=== PATIENT | male | born 1965 | race Hispanic/Latino ===

== ENCOUNTER 2024-11-17 13:27 | Inpatient (IN) | payer OTHER ==
[2024-11-17] VITALS (24 sets, daily range): BP systolic 85–132; BP diastolic 40–80; PULSE 84–115; RESP 13–22; TEMP 98.4; O2SAT 99
[~2024-11-17] VITALS: Ht 177.8 cm; Wt 84.8 kg
--- NOTE | 2024-11-17 13:52 | NUR ---
PT WAS IN TRIAGE OFFICE AND REFUSED TO LEAVE THE TRIAGE OFFICE TO GO TO HIS ROOM. HELD ONTO THE DOOR HANDLE FOR 15 MINUTES AND PT STATED "I WANT YOU TO LEAVE ME ALONE." PT AND CAREGIVER AT BEDSIDE. PLACED IN ROOM BY YEIMI RN, CAREGIVER, , MYSELF, AND ELOINA RN. WHEN PT PLACED INTO THE ROOM, PT STATED "WHAT ARE YOU DOING TO ME. I DID NOT HURT THE LITTLE GIRL." WHEN REORIENTED, PT REFUSED TO TAKE BLOOD PRESSURE. WHEN APPROACHED TO PLACE BP CUFF ON LEFT ARM, THE PATIENT LIFTED HIS ARM AND STATED "LEAVE ME ALONE OR I HIT YOU". REFUSING EKG, REFUSING BLOODWORK, AND REFUSING VITAL SIGNS AT THIS TIME.
--- NOTE | 2024-11-17 14:03 | EKG ---
[facility] Test Date: 2024-11-17 Test Time: 13:57:11 Pat Name: KATHIE OSPINA Department: ED Room: 215 Gender: M Addiction Treatment Counselor: [id number] : [id number] Requested By: MADI BOYD Order Number: [id number] Reading MD: Perry Gutierrez Measurements Intervals Moodus Rate: 121 P: 89 TX: 144 QRS: 11 QRSD: 105 T: 52 QT: 337 QTc: 479 Interpretive Statements Sinus tachycardia Nonspecific STT abnormality No previous ECG available for comparison Electronically Signed On 11-18-2024 21:50:11 CDT by Perry Gutierrez Please click the below link to view image of tracing.
[2024-11-17 14:33] LABS: IMMATURE GRANULOCYTE ABSOLUTE 0.02 K/uL (0-1); NUCLEATED RED BLOOD CELLS 0.0 % (0.0-0.19); PLATELET COUNT (AUTO) 90 K/uL (130-400); RED BLOOD CELL COUNT(AUTO) 2.80 MIL/uL (4.50-6.20); RED CELL DISTRIBUTION WIDTH 16.4 % (11.0-15.5); WHITE BLOOD COUNT (AUTO) 4.1 K/uL (4.8-10.8)
--- NOTE | 2024-11-17 14:58 | NUR ---
ENTERED THE ROOM TO ADMINISTER MEDICATION TO THE PT AND PT REFUSED TAKE MEDICATION. USED A 10 CC SYRINGE TO ADMINISTER LACTULOSE DIRECTLY INTO THE PTS MOUTH. PT BIT THE SYRINGE AND SPIT OUT THE MEDICATION.
[2024-11-17] MEDS: 0.9%NACL 1000ML 1,000 ML IV ONE (15:04)
[2024-11-17] MEDS: LACTULOSE 20 GM/30 ML UDCUP PO ONE (15:05)
--- NOTE | 2024-11-17 15:11 | HMCIMG ---
EXAM: CT Head Without IV contrast. CLINICAL HISTORY: AMS TECHNIQUE: Axial computed tomography images of the head/brain without intravenous contrast. COMPARISON: None provided. FINDINGS: BRAIN: No evidence of acute hemorrhage. No mass lesion. No CT evidence for acute territorial infarct. No midline shift or extra-axial collections. VENTRICLES: No hydrocephalus. ORBITS: The orbits are unremarkable. SINUSES AND MASTOIDS: The paranasal sinuses and mastoid air cells are clear. BONES: No fracture. SOFT TISSUES: Unremarkable. IMPRESSION: No acute intracranial abnormality. If clinical concern persist recommend MRI for further evaluation. /[place]
[2024-11-17 15:48] LABS: CREATININE 1.5 mg/dL (0.5-1.3); GLOMERULAR FILTR. RATE CALC 53 mL/min (>90); GLUCOSE,RANDOM 160 mg/dL (70-105); SODIUM SERUM 134 mmol/L (136-145); UREA NITROGEN, BLOOD 22 mg/dL (7-18)
[2024-11-17 15:52] LABS: ALCOHOL, BLOOD < 3 mg/dL (0-10); ASPARTATE AMINOTRANSFERASE 26 U/L (10-37); CREATINE KINASE, TOTAL 73 U/L (21-232); TOTAL PROTEIN, SERUM 6.1 g/dL (6.0-8.3)
--- NOTE | 2024-11-17 16:49 | ERN ---
ED Note History of Present Illness Stated Complaint: ALTERED MENTAL STATUS Chief Complaint: Altered Mental Status Time Seen by MD: 13:33 Dictation: 59-year-old male presenting to the emergency department with a his for altered mental status history of ETOH abuse and cirrhosis unsure if he has been taking his medications but has been acting more confused and uncooperative. Allergies: Coded Allergies: Penicillins (Unverified Allergy, Unknown, 11/17/24) Sulfa (Sulfonamide Antibiotics) (Unverified Allergy, Unknown, 11/17/24) Past Medical History Past Medical History: Other Additional Past Medical Hx: CIRRHOSIS OF THE LIVER, Surgical History: None Review of System Dictation Unable to obtain review of systems due to altered mental status Initial Vital Sign VS Vital Signs Date Time Temp Pulse Resp B/P (MAP) Pulse Ox O2 Delivery O2 Flow Rate FiO2 11/17/24 13:30 98.1 95 16 136/62 97 Room Air 11/17/24 14:21 0 21 Physical Exam Dictation General: awake, alert, appears tremulous and confused Head/Face: Normocephalic, atraumatic Eyes: PERRL, EOMI, vision at baseline ENT: oral cavity clear, TMs clear, no signs of infection Neck: Trachea midline, supple, no nuchal rigidity Cardiovascular: RRR, normal S1/S2, No MRGs, no JVD Respiratory: CTAB, no respiratory distress, No rales or wheezes Abdomen: Soft, non-tender, non-distended, normal bowel sounds, no guarding or rebound. Skin: Warm, dry, normal turgor, no rash MS/Extremity: Pulses equal, no cyanosis, neurovascular intact, FROM Neuro: Confused, strength 5/5, CN 2-12 intact, normal cerebellar exam, normal gait, Results (Laboratory/Radiology) Laboratory/Radiology Laboratory Tests Test 11/17/24 14:21 White Blood Count 4.1 K/uL (4.8-10.8) L Red Blood Count 2.80 MIL/uL (4.50-6.20) L Hemoglobin 7.7 g/dL (14.0-18.0) L Hematocrit 24.7 % (42-54) L Mean Corpuscular Volume 88.2 fL (79-99) Mean Corpuscular Hemoglobin 27.5 pg (27.0-33.0) Mean Corpuscular Hemoglobin Concent 31.2 g/dL (32.0-36.0) L Red Cell Distribution Width 16.4 % (11.0-15.5) H Platelet Count 90 K/uL (130-400) L Mean Platelet Volume 10.2 fL (7.5-10.5) Immature Granulocyte % (Auto) 0.5 % (0-1) Neutrophils (%) (Auto) 59.4 % (40.0-77.0) Lymphocytes (%) (Auto) 16.4 % (21.0-51.0) L Monocytes (%) (Auto) 17.9 % (3.0-13.0) H Eosinophils (%) (Auto) 5.3 % (0.0-8.0) Basophils (%) (Auto) 0.5 % (0.0-5.0) Neutrophils # (Auto) 2.5 K/uL (1.8-7.7) Lymphocytes # (Auto) 0.7 K/uL (1.0-4.8) L Monocytes # (Auto) 0.7 K/uL (0.1-1.0) Eosinophils # (Auto) 0.22 K/uL (0.00-0.70) Basophils # (Auto) 0.02 K/uL (0.00-0.20) Absolute Immature Granulocyte (auto 0.02 K/uL (0-1) Nucleated Red Blood Cells 0.0 % (0.0-0.19) White Cell Morphology Comment See comments Sodium Level 134 mmol/L (136-145) L Potassium Level 4.1 mmol/L (3.5-5.1) Chloride Level 100 mmol/L (101-111) L Carbon Dioxide Level 23 mmol/L (21-32) Blood Urea Nitrogen 22 mg/dL (7-18) H Creatinine 1.5 mg/dL (0.5-1.3) H Glomerular Filtration Rate Calc 53 mL/min (>90) Random Glucose 160 mg/dL (70-105) H Lactic Acid Level 3.6 mmol/L (0.8-2.5) H Total Calcium 9.2 mg/dL (8.5-10.1) Total Bilirubin 1.0 mg/dL (0.2-1.0) Direct Bilirubin 0.4 mg/dL (0.0-0.3) H Aspartate Amino Transf (AST/SGOT) 26 U/L (10-37) Alanine Aminotransferase (ALT/SGPT) 21 U/L (12-78) Alkaline Phosphatase 122 U/L (50-136) Ammonia 124 umol/L (11-32) *H Total Creatine Kinase 73 U/L (21-232) Troponin I High Sensitivity 5 ng/L (4-75) Total Protein 6.1 g/dL (6.0-8.3) Albumin 3.0 g/dL (3.5-5.0) L Serum Alcohol < 3 mg/dL (0-10) Labs Reviewed?: Yes EKG Comment: Heart rate 121, sinus tachycardia no STEMI ED Course ED Course Orders Procedure Category Date Status Time 12 Lead Ekg Tracing- EKG 11/17/24 Complete Technical 13:37 Ammonia LAB 11/17/24 Complete 13:37 Alcohol, Blood LAB 11/17/24 Complete 13:37 Basic Metabolic Panel LAB 11/17/24 Complete 13:37 Blood Cult MERCEDES 11/17/24 In Process 13:37 Cbc With Differential LAB 11/17/24 Complete 13:37 Hepatic Function Panel LAB 11/17/24 Complete 13:37 Creatine Kinase, Total LAB 11/17/24 Complete 13:37 Lactic Acid LAB 11/17/24 Complete 13:37 Troponin I High LAB 11/17/24 Complete Sensitivity 13:37 Urinalysis Profile LAB 11/17/24 Logged 13:37 Chest 1vw RAD 11/17/24 Logged 13:37 Ct Head/Brain W/O CT 11/17/24 Resulted Contrast 13:37 Ceftriaxone 2gm Vial PHA 11/17/24 Complete (Rocephin 2gm Inj) 14:30 Lactulose 20 Gm/30 Ml PHA 11/17/24 Complete Udcup (Constulose 14:30 Diazepam 5 Mg/Ml 2 Ml PHA 11/17/24 Complete Syg (Valium 5 Mg/M 14:30 0.9%Nacl 1000ml (Ns PHA 11/17/24 Complete 1000ml) 14:30 Current Medications Medications (Trade) Dose Ordered Sig/Yumiko Route PRN Reason Start Time Stop Time Status Last Admin Dose Admin Ceftriaxone Sodium (Rocephin 2gm Inj) 2 gm ONCE ONCE IVPB 11/17/24 14:30 11/17/24 14:36 DC 11/17/24 15:06 Diazepam (VALium 5 MG/ML 2 ML SYG) 10 mg ONCE ONCE IVP 11/17/24 14:30 11/17/24 14:33 DC 11/17/24 15:06 Lactulose (Constulose 20gm/ 30ml Udcup) 20 gm ONCE ONCE PO 11/17/24 14:30 11/17/24 14:33 DC Sodium Chloride 1,000 ml @ 0 mls/hr ONCE ONCE IV 11/17/24 14:30 11/17/24 14:33 DC 11/17/24 15:04 Vital Signs Date Time Temp Pulse Resp B/P (MAP) Pulse Ox O2 Delivery O2 Flow Rate FiO2 11/17/24 14:21 99.3 117 20 116/55 97 Room Air* 0 21 11/17/24 13:30 98.1 95 16 136/62 97 Room Air Medical Decision Making MDM MDM: Differential diagnosis: Rationale: Tests considered and ordered secondary to shared decision making include: labs, ECG and radiology Previous outside records reviewed: Old ER visits. Risk of complication and/or morbidity or mortality of patient management: None Medications-Per medication reconciliation Need for hospitalization: Patient does meet criteria for hospitalization. Need for emergency major/minor surgery: No There are no social concerns with this patient. Prescription drug management Prescriptions will include symptomatic care Patient's prior external medical records from other ER visits were reviewed by me as indicated. Prior testing and results from previous visits were reviewed. Prior tests were taken into account with medical decision making and resource utilization, independent historian/historians were used to obtain complete medical history. I independently interpreted the test that were performed, results were reviewed by me and considered findings on radiology if ordered. Medical management and examination interpretation discussions were had by me with other qualified healthcare professionals as indicated for the patient's care. 59-year-old male with altered mental status, hepatic encephalopathy admitting for further care and evaluation. Critical Care Note Comment(s) Total critical care time was 33 minutes. Excluding time for procedures. Management of critically ill patient with concern for acute decompensation. Management included interpretation of laboratory values and imaging, hemodynamics, time for consultation with consultants and admitting physician. DX & DISP Disposition: Inpatient Departure Impression: Primary Impression: Altered mental status Additional Impression: Hepatic encephalopathy Condition: Stable Referrals: ANIAY ANTONIO MD (PCP) MADI BOYD MD Nov 17, 2024 16:49
--- NOTE | 2024-11-17 17:12 | NUR ---
RESUSCITATIVE MEASURES SIGNED AT THIS TIME. SIGNED FOR PT HE IS CURRENTLY A&OX0. COMPRESSIONS ONLY- NO INTUBATION.
[2024-11-17] MEDS ORDERED: COMPOUND IV REFRIGERATED 1 EACH IVSOLN MISC PRN (17:30)
[2024-11-17] MEDS ORDERED: FOLic ACID 5 MG/ML VIAL 1 MG, THIAMINE HCL 100 MG in 0.9%NACL 1000ML 1,000 ML IV SCH (17:30)
[2024-11-17] MEDS ORDERED: PHARMACY COMMUNICATION MISC SCH (17:30)
[2024-11-17 17:40] LABS: ABG BASE EXCESS -0.2 mmol/L (-2.0-3.0); ABG HCO3 22.7 mmol/L (21.0-28.0); ABG OXYGEN SATURATION 43.9 % (94.0-98.0); ABG PCO2 30 mmHg (35-48); ABG PH 7.497 (7.350-7.450); CARBON MONOXIDE 0.5 % (0.5-1.5); DEVICE COMMENT RBMELANIE; PO2, ARTERIAL BG < 45.0 mmHg (83.0-108.0); TEMPERATURE, CELSIUS BG 37.0 CELSIUS (35.5-37.0); VENT MODE, BG RA (ROOM AIR)
[2024-11-17] MEDS: BUDESONIDE 0.5 MG/2 ML INH IH SCH (17:46)
[2024-11-17 17:50] LABS: INR 1.17 (0.85-1.15)
[2024-11-17] MEDS ORDERED: GLUCAGON 1MG KIT 1 MG ML IM PRN (18:00)
[2024-11-17] MEDS ORDERED: DEXTROSE 50%-WATER 50 ML DISP.SYRIN IV PRN (18:00)
[2024-11-17 18:05] LABS: APPEARANCE,URINE CLEAR (CLEAR); GLUCOSE, URINE (UA) NEGATIVE (NEGATIVE); LEUKOCYTE ESTERASE ,URINE NEGATIVE Leu/uL (NEGATIVE); NITRATE,URINE NEGATIVE (NEGATIVE); OCCULT BLOOD,URINE NEGATIVE (NEGATIVE)
[2024-11-17 18:06] LABS: ADD UA MICROSCOPIC NO
[2024-11-17 18:12] LABS: AMPHET/METH SCREEN,URINE NEGATIVE (NEGATIVE); BARBITURATE SCREEN, URINE NEGATIVE (NEGATIVE); CANNABINOID SCREEN,URINE NEGATIVE (NEGATIVE); COCAINE SCREEN,URINE NEGATIVE (NEGATIVE)
--- NOTE | 2024-11-17 18:14 | HP ---
[facility] HISTORY AND PHYSICAL Date of Service: Nov 17, 2024 Time of Service: 18:02 HISTORY OF PRESENT ILLNESS: Date of service: 11/17/2024, patient was seen in ER room 11 59-year-old male with underlying history of alcoholic liver cirrhosis, chronic kidney disease, long-term history of alcoholism who presented to the ER for further evaluation of one day history of confusion, agitation, combativeness. P joanne is unable to provide any reliable history and spouse was present at bedside who assisted with further HPI. Patient was recently hospitalized in [facility] after he was diagnosed with hepatic encephalopathy. Hospitalized for few days and was discharged on oral lactulose on 11/13/2024. Patient was told he had low hemoglobin of 6.9 and received a unit of blood durin g hospitalization. denies previous history of GI bleed while hospitalized in [facility]. He was previously hospitalized in [facility] in 09/2024 with GI bleed requiring upper endoscopy which showed esophageal varices which was banded and there was also changes of portal gastropathy. Per , baseline hemoglobin usually runs close to seven. noticed that today, patient was confused and having increased combativeness. He was having significant agitation and he was brought to the ER for further evaluation. Per ER primary nurse, patient was noncooperative and very combative on presentation, he did receive 10 mg of IV Valium by ER provider. On bedside examination, patient is very lethargic and almost obtunded. He wakes up to verbal stimuli but falls asleep easily. Patient did get a CT head without contrast which showed findings of no acute intracranial abnormality. Labs on presentation showed WBC count of 4100, hemoglobin 7.7, [place] [address]. BMP showed sodium of 134, potassium 4.1 chloride of 100, BUN of 22, creatinine 1.5, lactic acid of 3.6, blood glucose of 160, ammonia of 124. Venous blood gas showed pH of 7.49 with pCO2 of 30, lactic acid of 1.68. Patient will be admitted for severe hepatic encephalopathy complicated by benzodiazepine given in the ER. We will monitor closely for signs of hepatic decompensation including GI bleeding. H&H will be monitored closely. Patient will receive IV fluids, IV antibiotics, patient will receive lactulose enema due to underlying lethargy/obtundation. Consultation with ICU team will be requested, we will have GI and Nephrology follow this patient Patient's does report that last week on his hospitalization in [facility], patient had verbally expressed to her that he would not want intubation or ventilator support, he is okay with CPR. has signed paperwork for modified code for no intubation but okay with CPR. REVIEW OF SYSTEMS: Unable to obtain ROS as patient is lethargic and obtunded PAST MEDICAL HISTORY: Alcoholic liver cirrhosis, chronic anemia with baseline hemoglobin close to seven, chronic thrombocytopenia, previous hospitalization in [facility] for hepatic encephalopathy, history of upper GI bleed with varices, portal gastropathy, chronic kidney disease PAST SURGICAL HISTORY: Upper endoscopy in 09/2024 in [facility] with findings of esophageal varices requiring banding and portal gastropathy PAST SOCIAL HISTORY: Patient chews tobacco intermittently, patient has long-time history of alcoho lism of about 30-40 years where he has gone weeks or months without drinking, last alcoholic drink was about a week ago, continues to drink intermittently FAMILY HISTORY: Denies pertinent family history Allergies: Penicillin, sulfa antibiotics Home medications include lactulose 45 g t.i.d., rifaximin 550 mg twice daily Coded Allergies: Penicillins (Unverified Allergy, Unknown, 11/17/24) Sulfa (Sulfonamide Antibiotics) (Unverified Allergy, Unknown, 11/17/24) PHYSICAL EXAM GENERAL APPEARANCE: Patient is obtunded, appears chronically ill, opens eyes to sternal NEUROLOGICAL: Cranial nerves intact, moving upper and lower extremity with stimuli, no focal deficits noted HEENT: Face is symmetric. Pupils are equal and reactive. Extraocular movements are intact. NECK: Supple. No JVD. No thyromegaly. No submental, submandibular, pre- /postauricular, occipital or supraclavicular lymphadenopathy. CHEST: Normal chest expansion. No Telemetry. LUNGS: Absence of any rales, rhonchi or any wheezing. CARDIOVASCULAR: Regular. S1 and S2 normal. No appreciable rubs, murmurs or gallops. ABDOMEN: Soft, mildly distended prominent veins noted, reducible umbilical hernia noted : Deferred. No [place]. EXTREMITIES: Non-edematous and not cyanotic. No clubbing. Good capillary refill. SKIN: No skin breakdown. Vital Sign (Last 24 Hours) 11/17/24 11/17/24 14:21 17:47 Temp 99.3 Pulse 115 Resp 20 B/P (MAP) 116/55 Pulse Ox 97 O2 Delivery Room Air* O2 Flow Rate 0 FiO2 21 LABS: Laboratory: Test 11/17/24 17:38 11/17/24 14:21 Range/Units Blood Gas Specimen Type Arterial Arterial Blood pH 7.497 H 7.350-7.450 Arterial Blood Partial Pressure CO2 30 L 35-48 mmHg Arterial Blood Partial Pressure O2 < 45.0 *L 83.0-108.0 mmHg Arterial Blood HCO3 22.7 21.0-28.0 mmol/L Arterial Blood Oxygen Saturation 43.9 L 94.0-98.0 % Arterial Blood Base Excess -0.2 -2.0-3.0 mmol/L Hemoglobin (Blood Gas) 8.1 L 13.5-17.5 g/dL Sodium (Blood Gas) 134 L 136-145 MMOL/L Bedside Potassium (Blood Gas) 4.2 3.4-4.5 MMOL/L Bedside Chloride (Blood Gas) 104 98-107 MMOL/L Bedside Glucose (Blood Gas) 99 H 65-95 MG/DL Bedside Ionized Calcium (Blood Gas) 1.18 1.15-1.33 MMOL/L Bedside Lactic Acid (Blood Gas) 1.68 H 0.36-0.75 MMOL/L Blood Gas Temperature 37.0 35.5-37.0 CELSIUS Blood Gas Vent Mode RA ROOM AIR FiO2 21.0 % Blood Gas Specimen Comment RBMELANIE White Blood Count 4.1 L 4.8-10.8 K/uL Red Blood Count 2.80 L 4.50-6.20 MIL/uL Hemoglobin 7.7 L 14.0-18.0 g/dL Hematocrit 24.7 L 42-54 % Mean Corpuscular Volume 88.2 79-99 fL Mean Corpuscular Hemoglobin 27.5 27.0-33.0 pg Mean Corpuscular Hemoglobin Concent 31.2 L 32.0-36.0 g/dL Red Cell Distribution Width 16.4 H 11.0-15.5 % Platelet Count 90 L 130-400 K/uL Mean Platelet Volume 10.2 7.5-10.5 fL Immature Granulocyte % (Auto) 0.5 0-1 % Neutrophils (%) (Auto) 59.4 40.0-77.0 % Lymphocytes (%) (Auto) 16.4 L 21.0-51.0 % Monocytes (%) (Auto) 17.9 H 3.0-13.0 % Eosinophils (%) (Auto) 5.3 0.0-8.0 % Basophils (%) (Auto) 0.5 0.0-5.0 % Neutrophils # (Auto) 2.5 1.8-7.7 K/uL Lymphocytes # (Auto) 0.7 L 1.0-4.8 K/uL Monocytes # (Auto) 0.7 0.1-1.0 K/uL Eosinophils # (Auto) 0.22 0.00-0.70 K/uL Basophils # (Auto) 0.02 0.00-0.20 K/uL Absolute Immature Granulocyte (auto 0.02 0-1 K/uL Nucleated Red Blood Cells 0.0 0.0-0.19 % White Cell Morphology Comment See comments Erythrocyte Sedimentation Rate 7 0-20 MM/HR Prothrombin Time 12.2 H 9.6-11.6 SEC Prothromb Time International Ratio 1.17 H 0.85-1.15 Activated Partial Thromboplast Time 24.7 L 26.3-35.5 SEC Sodium Level 134 L 136-145 mmol/L Potassium Level 4.1 3.5-5.1 mmol/L Chloride Level 100 L 101-111 mmol/L Carbon Dioxide Level 23 21-32 mmol/L Blood Urea Nitrogen 22 H 7-18 mg/dL Creatinine 1.5 H 0.5-1.3 mg/dL Glomerular Filtration Rate Calc 53 >90 mL/min Random Glucose 160 H 70-105 mg/dL Lactic Acid Level 3.6 H 0.8-2.5 mmol/L Total Calcium 9.2 8.5-10.1 mg/dL Total Bilirubin 1.0 0.2-1.0 mg/dL Direct Bilirubin 0.4 H 0.0-0.3 mg/dL Aspartate Amino Transf (AST/SGOT) 26 10-37 U/L Alanine Aminotransferase (ALT/SGPT) 21 12-78 U/L Alkaline Phosphatase 122 50-136 U/L Ammonia 124 *H 11-32 umol/L Total Creatine Kinase 73 21-232 U/L Troponin I High Sensitivity 5 4-75 ng/L C-Reactive Protein, Quantitative 2.70 0.5-3.0 mg/L Total Protein 6.1 6.0-8.3 g/dL Albumin 3.0 L 3.5-5.0 g/dL Serum Alcohol < 3 0-10 mg/dL Current Medications Medications (Trade) Dose Ordered Sig/Yumiko Route PRN Reason Start Time Stop Time Status Last Admin Dose Admin Acetaminophen (TYLenol 325MG TAB) 650 mg Q6H PRN PO MILD PAIN (1-3) 11/17/24 17:30 12/17/24 17:29 Albuterol (DUOneb) 1 udvial Q6H PRN IH SHORTNESS OF BREATH 11/17/24 17:30 12/17/24 17:29 11/17/24 17:46 1 UDVIAL Budesonide (Pulmicort 0.5 Mg/2ml) 0.5 mg BIDRESP IH 11/17/24 18:00 12/17/24 17:59 11/17/24 17:46 0.5 MG Ceftriaxone Sodium (Rocephin 2gm Inj) 2 gm DAILY IVPB 11/18/24 09:00 11/28/24 08:59 Dextrose (D50w) 50 ml AD PRN IV HYPOGLYCEMIA PROTOCOL 11/17/24 18:00 12/17/24 17:59 Folic Acid 1 mg/ Thiamine HCl 100 mg/Sodium Chloride 1,010 ml @ 100 mls/hr Q24H IV 11/17/24 17:30 11/20/24 03:35 Glucagon (Glucagon 1mg Kit) 1 mg AD PRN IM HYPOGLYCEMIA PROTOCOL 11/17/24 18:00 12/17/24 17:59 Ondansetron HCl (zoFRAN 4MG INJ) 4 mg Q6H PRN IVP NAUSEA/VOMITING 11/17/24 17:30 12/17/24 17:29 Pantoprazole Sodium (PROTonix 40MG INJ) 40 mg Q12H IVP 11/17/24 17:30 12/17/24 17:29 Pharmacy Profile Note (Pharmacy Communication) 1 each ONCE MISC 11/17/24 17:30 11/17/24 17:29 DC Thiamine HCl (Vitamin B-1) 200 mg Q24H IVP 11/17/24 17:30 12/17/24 17:29 DIAGNOSTICS / RADIOLOGY: SERVICE [id number] REASON: AMS ORDERING PHYSICIAN: MADI BOYD MD PROCEDURE: HEAD WO - CT HEAD/BRAIN W/O CONTRAST EXAM: CT Head Without IV contrast. CLINICAL HISTORY: AMS TECHNIQUE: Axial computed tomography images of the head/brain without intravenous contrast. COMPARISON: None provided. FINDINGS: BRAIN: No evidence of acute hemorrhage. No mass lesion. No CT evidence for acute territorial infarct. No midline shift or extra-axial collections. VENTRICLES: No hydrocephalus. ORBITS: The orbits are unremarkable. SINUSES AND MASTOIDS: The paranasal sinuses and mastoid air cells are clear. BONES: No fracture. SOFT TISSUES: Unremarkable. IMPRESSION: No acute intracranial abnormality. If clinical concern persist recommend MRI for further evaluation. /[place] DICTATED BY: YARELIS RUSSELL Jr., MD DATE: 11/17/24 1611 ASSESSMENT: Decompensated alcoholic liver cirrhosis with severe hepatic encephalopathy (MELD Score 15), POA Lactic acidosis, POA MATTIE on CKD, POA Hyponatremia, POA Chronic anemia, POA History of esophageal varices requiring banding in 09/2024, POA History of portal hypertensive gastropathy, POA History of chronic thrombocytopenia from underlying portal hypertension, POA Recent history of hepatic encephalopathy requiring hospitalization in [facility], 10/2024, POA Long-term history of alcoholism, POA History of tobacco use, POA Debility, POA PLAN: Patient will be admitted to ICU Patient will be placed on aspiration precautions, reports that last week, patient had verbally stated to her that he would not want intubation or venti lator support but he is okay with CPR in medications, code status has been updated and has signed Patient will receive a dose of lactulose enema We will keep patient on IV Protonix 40 mg twice daily We will start patient on thiamine supplementation in banana bag Lactic acid will be trended to ensure it does not significantly up trend Consultation with ICU team will be requested We will have GI and Nephrology follow up with the patient We will avoid any benzodiazepines, patient unfortunately did receive 10 mg of IV Valium in the ER by ER provider, venous blood gas does not show significant hypercapnia or acidosis, we will continue to monitor mental status in and allow Valium to wear off, if patient has significant agitation, we can consider Precedex gtt if needed We will keep patient on IV Rocephin 2 g daily We will monitor closely for signs of infection We will monitor closely for signs of bleeding including upper and lower GI bleed, H&H will be trended closely tonight q.6 hours, we will transfuse to maintain hemoglobin greater than seven All labs will be repeated in the morning Condition remains critical, prognosis remains guarded states that patient has previous wishes of no intubation, but he is okay with CPR in medications inclusive of cardiac arrest Date of service: 11/17/2024 Plan of care was discussed with at bedside, Rodney Hubbard MD Advanced Care Planning: Which of the following were discussed: Hospice care: Yes __ No _X_ Therapeutic options: Yes _X_ No __ Advance directives: Yes _X_ No __ Other discussions: Discussed with who?: Patient Voluntary nature of this service was explained to the patient? Yes _x_ No __ Amount of time spent: 20 minutes RODNEY HUBBARD MD Nov 17, 2024 18:14
--- NOTE | 2024-11-17 18:24 | NUR ---
REPORT GIVEN TO ZELALEM.
[2024-11-17] MEDS: LACTULOSE 20 GM/30 ML UDCUP PR ONE (19:00)
[2024-11-17] MEDS: THIAMINE HCL 100 MG/ML 2ML VIAL IVP SCH (19:02)
--- NOTE | 2024-11-17 19:36 | CONS ---
[facility] CONSULTATION NOTE Date Patient Seen: Nov 17, 2024 Time of Visit: 19:24 Supervising Physician: Dr Jose David Woody Reason for Consultation: ICU records management associate Physician: Hospitalist Outpatient Specialists: [ ] Inpatient Consults: [ ] PROBLEM LIST: Acute hypoxic respiratory failure, POA Acute hepatic encephalopathy, initial ammonia level of 124, POA Acute decompensated liver cirrhosis, POA Lactic acidosis, POA Chronic alcoholism, POA Hepatorenal syndrome, POA Acute kidney injury, POA Hyponatremia, POA Chronic normocytic anemia, POA PLAN: Continue ICU care VS per unit protocol Continue cardiac monitoring Keep head of bed above 30 Monitor for bleeding Aspiration precautions Safety precautions Avoid narcotics and benzodiazepines Continue IV fluids Continue lactulose Follow up culture results Facilitate ordered labs and imaging CBC, CMP, magnesium level daily HPI: 59-year-old with past medical history of chronic alcoholism, liver cirrhosis who presented to ED with complaint of alteration in mental status and found to have acute hepatic encephalopathy, hepatorenal syndrome, acute hypoxic respiratory failure, and acute kidney injury. Per report patient's noticed that today patient was confused and having increased combativeness. When he presented to ER patient was very combative and agitated requiring dose of benzodiazepines. Initial CT of the head done in ED showed no acute intracranial abnormality, his initial CBC showed WBC count [place] 4100, hemoglobin 7.7[place] [address], his BMP showed sodium of 134, potassium 4.1 chloride of 100, BUN of 22, creatinine 1.5, lactic acid of 3.6 (now down to 0.9) blood glucose of 160, and ammonia of 124. ICU was consulted for further evaluation and management. At present patient is currently hemodynamically stable, encephalopathic, unable to complete ROS due to alteration in mental status. Family is okay with chest compression but not with intubation. All information were obtained from prior medical record, and ER staff report. PAST MEDICAL HX: see above PAST SURGICAL HX: See HPI SOCIAL HISTORY: See HPI Coded Allergies: Penicillins (Unverified Allergy, Unknown, 11/17/24) Sulfa (Sulfonamide Antibiotics) (Unverified Allergy, Unknown, 11/17/24) REVIEW OF SYSTEMS: Unable to complete ROS due to alteration in mental status PHYSICAL EXAM: GENERAL: encephalopathic HEENT: EOMI, Sclera non icteric, moist mucosa NECK: Supple, no JVD, trachea midline LUNGS: Clear breath sounds bilaterally. No wheezes HEART: Sinus tach on them on monitor Normal S1 and S2, without murmurs ABD: Abdomen soft, nontender. Bowel sounds present EXT: No clubbing cyanosis or edema NEURO: Encephalopathic Vital Signs (last 8hr) Date Time Temp Pulse Resp B/P (MAP) Pulse Ox O2 Delivery O2 Flow Rate FiO2 11/17/24 18:29 99.3 101 20 117/81 99 Room Air* 0 21 11/17/24 17:47 115 11/17/24 17:30 102 25 118/69 97 Room Air* 0 21 11/17/24 16:30 103 21 125/60 97 Room Air* 0 21 11/17/24 15:30 120 22 104/60 97 Room Air* 0 21 11/17/24 14:21 99.3 117 20 116/55 97 Room Air* 0 21 11/17/24 13:30 98.1 95 16 136/62 97 Room Air LABS: Hematology Labs: Test 11/17/24 18:33 11/17/24 14:21 Range/Units Hemoglobin 7.3 L 14.0-18.0 g/dL Hematocrit 23.9 L 42-54 % White Blood Count 4.1 L 4.8-10.8 K/uL Red Blood Count 2.80 L 4.50-6.20 MIL/uL Mean Corpuscular Volume 88.2 79-99 fL Mean Corpuscular Hemoglobin 27.5 27.0-33.0 pg Mean Corpuscular Hemoglobin Concent 31.2 L 32.0-36.0 g/dL Red Cell Distribution Width 16.4 H 11.0-15.5 % Platelet Count 90 L 130-400 K/uL Mean Platelet Volume 10.2 7.5-10.5 fL Immature Granulocyte % (Auto) 0.5 0-1 % Neutrophils (%) (Auto) 59.4 40.0-77.0 % Lymphocytes (%) (Auto) 16.4 L 21.0-51.0 % Monocytes (%) (Auto) 17.9 H 3.0-13.0 % Eosinophils (%) (Auto) 5.3 0.0-8.0 % Basophils (%) (Auto) 0.5 0.0-5.0 % Neutrophils # (Auto) 2.5 1.8-7.7 K/uL Lymphocytes # (Auto) 0.7 L 1.0-4.8 K/uL Monocytes # (Auto) 0.7 0.1-1.0 K/uL Eosinophils # (Auto) 0.22 0.00-0.70 K/uL Basophils # (Auto) 0.02 0.00-0.20 K/uL Absolute Immature Granulocyte (auto 0.02 0-1 K/uL Nucleated Red Blood Cells 0.0 0.0-0.19 % White Cell Morphology Comment See comments Erythrocyte Sedimentation Rate 7 0-20 MM/HR Chemistry Labs: Test 11/17/24 18:33 11/17/24 14:21 Range/Units Lactic Acid Level 0.9 0.8-2.5 mmol/L Sodium Level 134 L 136-145 mmol/L Potassium Level 4.1 3.5-5.1 mmol/L Chloride Level 100 L 101-111 mmol/L Carbon Dioxide Level 23 21-32 mmol/L Blood Urea Nitrogen 22 H 7-18 mg/dL Creatinine 1.5 H 0.5-1.3 mg/dL Glomerular Filtration Rate Calc 53 >90 mL/min Random Glucose 160 H 70-105 mg/dL Hemoglobin A1c 4.2 4.0-6.0 % Estimated Average Glucose (eAG) 74 70-126 mg/dL Total Calcium 9.2 8.5-10.1 mg/dL Total Bilirubin 1.0 0.2-1.0 mg/dL Direct Bilirubin 0.4 H 0.0-0.3 mg/dL Aspartate Amino Transf (AST/SGOT) 26 10-37 U/L Alanine Aminotransferase (ALT/SGPT) 21 12-78 U/L Alkaline Phosphatase 122 50-136 U/L Ammonia 124 *H 11-32 umol/L Total Creatine Kinase 73 21-232 U/L Troponin I High Sensitivity 5 4-75 ng/L C-Reactive Protein, Quantitative 2.70 0.5-3.0 mg/L Total Protein 6.1 6.0-8.3 g/dL Albumin 3.0 L 3.5-5.0 g/dL Procalcitonin < 0.05 L 0.05-0.5 ng/mL Coagulation Labs: Test 11/17/24 14:21 Range/Units Prothrombin Time 12.2 H 9.6-11.6 SEC Prothromb Time International Ratio 1.17 H 0.85-1.15 Activated Partial Thromboplast Time 24.7 L 26.3-35.5 SEC DIAGNOSTICS / RADIOLOGY RESULTS: EXAM: CT Head Without IV contrast. CLINICAL HISTORY: AMS TECHNIQUE: Axial computed tomography images of the head/brain without intravenous contrast. COMPARISON: None provided. FINDINGS: BRAIN: No evidence of acute hemorrhage. No mass lesion. No CT evidence for acute territorial infarct. No midline shift or extra-axial collections. VENTRICLES: No hydrocephalus. ORBITS: The orbits are unremarkable. SINUSES AND MASTOIDS: The paranasal sinuses and mastoid air cells are clear. BONES: No fracture. SOFT TISSUES: Unremarkable. IMPRESSION: No acute intracranial abnormality. If clinical concern persist recommend MRI for further evaluation. PLAN NEURO: Minimize central acting medications as possible. Fall Precautions. Well lighted room through the day and minimize interruptions through the night to prevent acute delirium. PULMONARY: Supplemental 02 as needed Titrate Fio2 to keep Spo2 > or = 90% DuoNebs and CPT as needed IS hourly while awake for pulmonary hygiene CARDIOVASCULAR: Follow hemodynamics. Titrate vasopressor to keep MAP >65 or systolic blood pressure >95mmHg DIPS: None LINES: PIV GI & NUTRITION: Continue nutritional support Aspirations precautions Prokinetic agents and laxatives as needed KIDNEYS & ELECTROLYTES: Strict monitoring of intake and output Daily weights Avoid nephrotoxic agents Monitor electrolytes and replace as needed Goal urine output of 30mL/hr or 0.5mL/kg/hr Urine output: [ ] Fluid Balance: [ ] ENDOCRINE: Maintain blood glucose between 100-180 at all times. Insulin sliding scale for blood glucose management INFECTIOUS DISEASE: Trend temperature. Felix-culture if febrile. Micro: [ ] Antibiotics: [ ] HEMATOLOGY & COAGULATION: Monitor H&H. Keep Hgb > 7 Transfuse 1 unit of PRBC for Hgb < 7 Transfuse 1 pack of platelets of platelets < 20, 000 Watch for any signs and symptoms of bleeding SKIN: Pressure ulcer prevention per facility protocol Rehab: PT/OT Prophylaxis: GI: PPI DVT: SCDs Code Status: Full Resuscitation Disposition: ICU Other: Total patient care time exceeds 35 minutes excluding all procedures. Supervising physician: DANILO Flores APRN Nov 17, 2024 19:36
--- NOTE | 2024-11-17 20:26 | HMCIMG ---
EXAM:CT Abdomen and Pelvis Without IV contrast CLINICAL HISTORY: Decompensated liver cirrhosis, lactic acidosis, assess for significant ascites TECHNIQUE: Axial computed tomography images of the abdomen and pelvis without intravenous contrast. CONTRAST: No IV contrast. COMPARISON: None provided. FINDINGS: LUNG BASES: Atelectasis in the lung bases. No pleural effusions are seen. LIVER: Mild surface nodularity and volume redistribution. Few small calcified granulomas are seen in both lobes of the liver. GALLBLADDER AND BILE DUCTS: The gallbladder appears within normal limits. No radiopaque gallstones are seen. No biliary ductal dilatation is evident. PANCREAS: Unremarkable. SPLEEN: Enlarged, measuring 20 cm. ADRENAL GLANDS: Unremarkable. KIDNEYS, URETERS, AND BLADDER: The kidneys appear within normal limits. There is no hydronephrosis or hydroureter. No urinary calculi are seen. Bladder is unremarkable. STOMACH AND BOWEL: Unremarkable appearance of the stomach and bowel. No evidence of bowel obstruction. No evidence suggesting enteritis or colitis. Diverticulosis. PERITONEUM: Mild to moderate ascites is seen. Diffuse fat stranding of the omentum and mesentery. No free air. LYMPH NODES: Multiple reactive retroperitoneal and mesenteric lymph nodes, the largest measuring 1.3 cm in the paraaortic region. REPRODUCTIVE: Unremarkable as visualized. VASCULATURE: No evidence of abdominal aortic aneurysm. Mild atherosclerotic calcification of the aorta. BONES: Old rib fractures. No acute osseous pathology evident. Degenerative changes are seen in the visualised spine. IMPRESSION: 1. Mild to moderate ascites with diffuse omental and mesenteric fat stranding. 2. Cirrhotic liver. Splenomegaly /[place]
[2024-11-17] MEDS ORDERED: LACT10SO85 PO (20:28)
[2024-11-17] MEDS ORDERED: SPIR100T5 PO (20:28)
[2024-11-17] MEDS ORDERED: RIFA550T PO (20:28)
[2024-11-17] MEDS ORDERED: GABA-534 PO (20:28)
[2024-11-17] MEDS ORDERED: FERS325 PO (20:28)
[2024-11-17] MEDS ORDERED: BUME1TAB6 PO (20:28)
[2024-11-17] MEDS ORDERED: PANT20TA18 PO (20:28)
--- NOTE | 2024-11-17 20:39 | HMCIMG ---
EXAM: CR Chest, 1 View. CLINICAL HISTORY: assess for any pneumonia COMPARISON: None provided. FINDINGS: LUNGS: The lungs show no infiltrate or other acute finding.Mild bibasilar atelectasis. PLEURAL SPACES: No pleural effusion or pneumothorax. MEDIASTINUM: Cardiac size and mediastinal contours within normal limits. BONES: No aggressive appearing osseous lesion seen. Several old right rib fracture deformities noted. IMPRESSION: No acute cardiopulmonary pathology is evident. /[place]
[2024-11-18] VITALS (79 sets, daily range): BP systolic 82–117; BP diastolic 37–75; PULSE 72–95; RESP 10–24; TEMP 97.9–98.3; O2SAT 97–100
[2024-11-18] MEDS: LACTULOSE 20 GM/30 ML UDCUP PR ONE (01:55)
[2024-11-18] MEDS: FOLic ACID 5 MG/ML VIAL 1 MG, THIAMINE HCL 100 MG in 0.9%NACL 1000ML 1,000 ML IV SCH (01:56)
[2024-11-18 07:46] LABS: IMMATURE GRANULOCYTE ABSOLUTE 0.01 K/uL (0-1); NUCLEATED RED BLOOD CELLS 0.0 % (0.0-0.19); PLATELET COUNT (AUTO) 76 K/uL (130-400); RED BLOOD CELL COUNT(AUTO) 2.61 MIL/uL (4.50-6.20); RED CELL DISTRIBUTION WIDTH 16.4 % (11.0-15.5); WHITE BLOOD COUNT (AUTO) 3.1 K/uL (4.8-10.8)
[2024-11-18] MEDS ORDERED: PROMETHAZINE HCL 25 MG TABLET PO PRN (08:00)
[2024-11-18] MEDS ORDERED: PHARMACY COMMUNICATION MISC PRN (08:00)
[2024-11-18] MEDS: THIAMINE HCL 100 MG, FOLic ACID 5 MG/ML VIAL 1 MG in 0.9%NACL 1000ML 1,000 ML IV SCH (08:00)
[2024-11-18 08:23] LABS: ASPARTATE AMINOTRANSFERASE 21.0 U/L (10-37); CREATININE 1.3 mg/dL (0.5-1.3); GLOMERULAR FILTR. RATE CALC 63.0 mL/min (>90); GLUCOSE,RANDOM 101.0 mg/dL (70-105); SODIUM SERUM 137.0 mmol/L (136-145); TOTAL PROTEIN, SERUM 5.4 g/dL (6.0-8.3); UREA NITROGEN, BLOOD 19.0 mg/dL (7-18)
[2024-11-18] MEDS: LACTULOSE 20 GM/30 ML UDCUP PO SCH (08:39)
[2024-11-18] MEDS: MULTIVITAMIN TABLET PO SCH (08:39)
[2024-11-18] MEDS: [UNRECOGNIZED DRUG - OTHER] PO SCH (08:39)
--- NOTE | 2024-11-18 10:57 | PN ---
[facility] PROGRESS NOTE Date Patient Seen: Today, October Supervising Physician: Dr Jose David Woody Assessment: Acute hypoxic respiratory failure, POA Acute hepatic encephalopathy, initial ammonia level of 124, POA Acute decompensated liver cirrhosis, POA Lactic acidosis, POA Chronic alcoholism, POA Hepatorenal syndrome, POA Acute kidney injury, POA Hyponatremia, POA Chronic normocytic anemia, POA Interval history: Patient seen and examined, patient remains alternating between obtunded and agitated, currently on Precedex CIWA protocol Ammonia level was 124, pending repeat Weaning off Precedex, pending ABG, Chest x-ray is clear Good sats on nasal cannula 2 L Drug screen negative, alcohol negative Plan: CIWA protocol Weaning Precedex Follow ammonia level Banana bag, thiamine, folic acid Code Status: Full Resuscitation GI & DVT Prophylaxis REVIEW OF SYSTEMS: 12 point ROS reviewed , only + as per above PHYSICAL EXAM: GENERAL: Agitated HEENT: EOMI, Sclera non icteric, moist mucosa NECK: Supple, no JVD, trachea midline LUNGS: Clear breath sounds bilaterally. No wheezes HEART: Regular rate and rhythm. Normal S1 and S2, without murmurs ABD: Obese Abdomen soft, nontender. Bowel sounds present EXT: No clubbing cyanosis or edema. NEURO: Confused PLAN GI & NUTRITION: Continue nutritional support Aspirations precautions Prokinetic agents and laxatives as needed KIDNEYS & ELECTROLYTES: Strict monitoring of intake and output NEURO: Minimize central acting medications as possible. Fall Precautions. Well lighted room through the day and minimize interruptions through the night to prevent acute delirium. PULMONARY: Supplemental 02 as needed Titrate Fio2 to keep Spo2 > or = 90% DuoNebs and CPT as needed CARDIOVASCULAR: Follow hemodynamics. Titrate vasopressor to keep MAP >65 or systolic blood pressure >95mmHg ENDOCRINE: Maintain blood glucose between 100-180 at all times. Insulin sliding scale for blood glucose management RENAL: Avoid nephrotoxic agents INFECTIOUS DISEASE: Trend temperature. Felix-culture if febrile. HEMATOLOGY & COAGULATION: Monitor H&H. Keep Hgb > 7 Transfuse 1 unit of PRBC for Hgb < 7 Watch for any signs and symptoms of bleeding SKIN: Pressure ulcer prevention per facility protocol Total patient critical care time 45 minutes excluding all procedures. ATTESTATION BY PHYSICIAN The patient has been seen and evaluated, the case has been discussed with the PA, I agree with the clinical findings and plan of care. Vitals/Labs Vital Signs Date Time Temp Pulse Resp B/P (MAP) Pulse Ox O2 Delivery O2 Flow Rate FiO2 11/18/24 09:15 91 16 117/70 100 Nasal Cannula 2.0 11/18/24 08:00 98.1 11/18/24 08:00 28 Laboratory Tests 11/17/24 14:21 11/17/24 18:33 11/18/24 00:57 11/18/24 07:28 Medications Current Medications Ceftriaxone Sodium 2 gm ONCE ONCE IVPB Last administered on 11/17/24at 15:06; Start 11/17/24 at 14:30; Stop 11/17/24 at 14:36; Status DC Lactulose 20 gm ONCE ONCE PO; Start 11/17/24 at 14:30; Stop 11/17/24 at 14:33; Status DC Diazepam 10 mg ONCE ONCE IVP Last administered on 11/17/24at 15:06; Start 11/17/24 at 14:30; Stop 11/17/24 at 14:33; Status DC Sodium Chloride 1,000 ml @ 0 mls/hr ONCE ONCE IV Last administered on 11/17/24at 15:04; Start 11/17/24 at 14:30; Stop 11/17/24 at 14:33; Status DC Thiamine HCl 200 mg Q24H IVP Last administered on 11/17/24at 19:02; Start 11/17/24 at 17:30; Stop 12/17/24 at 17:29 Folic Acid 1 mg/ Thiamine HCl 100 mg/Sodium Chloride 1,010 ml @ 100 mls/hr Q24H IV; Start 11/17/24 at 17:30; Stop 11/18/24 at 01:32; Status DC Pantoprazole Sodium 40 mg Q12H IVP Last administered on 11/18/24at 06:05; Start 11/17/24 at 17:30; Stop 12/17/24 at 17:29 Ceftriaxone Sodium 2 gm DAILY IVPB Last administered on 11/18/24at 08:39; Start 11/18/24 at 09:00; Stop 11/28/24 at 08:59 Pharmacy Profile Note 1 each ONCE MISC; Start 11/17/24 at 17:30; Stop 11/17/24 at 17:29; Status DC Lactulose 200 gm ONCE ONCE GA; Start 11/17/24 at 18:00; Stop 11/17/24 at 18:01; Status DC Acetaminophen 650 mg Q6H PRN PO; Start 11/17/24 at 17:30; Stop 12/17/24 at 17:29 Ondansetron HCl 4 mg Q6H PRN IVP; Start 11/17/24 at 17:30; Stop 11/18/24 at 07:56; Status DC Budesonide 0.5 mg BIDRESP IH Last administered on 11/18/24at 06:58; Start 11/17/24 at 18:00; Stop 12/17/24 at 17:59 Albuterol 1 udvial Q6H PRN IH Last administered on 11/18/24at 06:58; Start 11/17/24 at 17:30; Stop 12/17/24 at 17:29 Dextrose 50 ml AD PRN IV; Start 11/17/24 at 18:00; Stop 12/17/24 at 17:59 Glucagon 1 mg AD PRN IM; Start 11/17/24 at 18:00; Stop 12/17/24 at 17:59 Dexmedetomidine/ Sodium Chloride 400 mcg PROTOCOL IV Last administered on 11/18/24at 01:55; Start 11/17/24 at 19:30; Stop 12/17/24 at 19:29 Folic Acid 1 mg/ Thiamine HCl 100 mg/Sodium Chloride 1,010 ml @ 100 mls/hr Q24H IV Last administered on 11/18/24at 01:56; Start 11/18/24 at 02:00; Stop 11/20/24 at 12:05 Lactulose 200 gm ONCE ONCE GA Last administered on 11/18/24at 01:55; Start 11/18/24 at 02:00; Stop 11/18/24 at 02:01; Status DC Chlordiazepoxide HCl 25 mg Q2H PRN PO; Start 11/18/24 at 08:00; Stop 11/25/24 at 07:59 Chlordiazepoxide HCl 50 mg Q1H PRN PO; Start 11/18/24 at 08:00; Stop 11/25/24 at 07:59 Ondansetron HCl 4 mg Q4H PRN IV; Start 11/18/24 at 08:00; Stop 12/18/24 at 07:59 Promethazine HCl 25 mg Q6H PRN PO; Start 11/18/24 at 08:00; Stop 12/18/24 at 07:59 Thiamine HCl 100 mg/Folic Acid 1 mg/Sodium Chloride 1,011.2 ml @ 100 mls/ hr Q24H IV; Start 11/18/24 at 08:00; Stop 11/20/24 at 18:07 Multivitamins Therapeutic 1 tab DAILY PO Last administered on 11/18/24at 08:39; Start 11/18/24 at 09:00; Stop 12/18/24 at 08:59 Pharmacy Profile Note 1 each PROTOCOL PRN MISC; Start 11/18/24 at 08:00; Stop 11/25/24 at 07:59 Diazepam 10 mg Q4H PRN IVP; Start 11/18/24 at 08:00; Stop 11/25/24 at 07:59 Diazepam 20 mg Q4H PRN IVP; Start 11/18/24 at 08:00; Stop 11/25/24 at 07:59 Rifaximin 200 mg BID PO Last administered on 11/18/24at 08:39; Start 11/18/24 at 09:00; Stop 12/18/24 at 08:59 Lactulose 20 gm Q4H4 PO Last administered on 11/18/24at 08:39; Start 11/18/24 at 09:00; Stop 12/18/24 at 08:59 MARVA SAENZ Nov 18, 2024 10:57
[2024-11-18] MEDS ORDERED: COMPOUND IV MISC 1 EACH IVSOLN MISC PRN (11:30)
--- NOTE | 2024-11-18 14:03 | PN ---
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 According to the family, the patient wa s noted to be increasingly forgetful and disoriented over the past 24 hours with progressive restlessness and inappropriate behavior. There was no reported history of recent trauma, seizures, or loss of consciousness. Patient was unable to provide a history due to mental status changes, however collateral history from family reveals no fever, cough, or chest pain. No recent hematemesis, melena, or overt bleeding was reported. According to the family he was hospitalized for a few days in [facility] where he was diagnosed with hepatic encephalopathy, and was discharged on oral lactulose on 11/13/2024. He was also previously hospitalized in [facility] in September 2024 with GI bleed requiring upper endoscopy which showed esophageal varices which was banded. CT head and chest x-ray results were unremarkable. A CT abdomen and pelvis without contrast showed mild to moderate ascites with diffuse omental and mesenteric fat stranding. Patient had a CIWA score of 11 and alcohol withdrawal protocol was initiated. FOBT was ordered, pending the results. Patient was started on Ceftriaxone 1g, Protonix 40mg IV and Lactulose enema since Ammonia level was 124. Gastroenterology and BIS consult were ordered and patient was admitted for severe hepatic encephalopathy 11/18/2024: Lying in bed at the time of evaluation. Alert only to name and location. As per the nurse, patient is off all sedatives at this time . Was unable to give a history because of his cognitive state. Vital signs : Temperature 98.2, pulse 77, respirations 16, BP 117/70, maintaining saturation at 100% on 2 L nasal cannula. Labs showed WBC 1.3 down from 4.1 yesterday, hemoglobin 7.2 from 7.3, hematocrit 23 and platelets 76 down from 90 yesterday. Chemistry: Sodium 134, potassium 4.1, BUN 22, creatinine 1.5 , lactic acid 1.5 and ammonia 67 down from 124 yesterday. Ordered an iron panel and transferrin saturation in order to work the patient up for anemia. Check hemoglobin level at 6:00 p.m. Ordered rifaximin 200 mg b.i.d. for the elevated ammonia and started the patient on Protonix drip 40mg and octreotide drip in case of a gastrointestinal bleed. Results of FOBT still pending. Patient has a MELD score of 15 which is a high risk of 30 day mortality and higher risk of complications like variceal bleed, hepatic encephalopathy and hepatorenal syndrome and should be closely monitored for decompensation. Gastroenterology consult has been ordered, pending their recommendations. REVIEW OF SYSTEMS: Unable to obtain ROS as patient is lethargic and obtunded PHYSICAL EXAM GENERAL APPEARANCE: Patient is obtunded, appears chronically ill, opens eyes to call NEUROLOGICAL: Cranial nerves intact, moving upper and lower extremity with stimuli, no focal deficits noted HEENT: Face is symmetric. Pupils are equal and reactive. Extraocular movements are intact. NECK: Supple. No JVD. No thyromegaly. No submental, submandibular, pre- /postauricular, occipital or supraclavicular lymphadenopathy. CHEST: Normal chest expansion. No Telemetry. LUNGS: Absence of any rales, rhonchi or any wheezing. CARDIOVASCULAR: Regular. S1 and S2 normal. No appreciable rubs, murmurs or gallops. ABDOMEN: Soft, mildly distended prominent veins noted, reducible umbilical hernia noted : Deferred. No [place]. EXTREMITIES: Non-edematous and not cyanotic. No clubbing. Good capillary refill. SKIN: No skin breakdown. Vital Signs (last 8hr) Date Time Temp Pulse Resp B/P (MAP) Pulse Ox O2 Delivery O2 Flow Rate FiO2 11/18/24 11:15 98.2 77 10 117/73 100 Nasal Cannula 2.0 11/18/24 10:45 76 17 110/71 100 Nasal Cannula 2.0 11/18/24 10:15 81 11 109/63 100 Nasal Cannula 2.0 11/18/24 09:45 77 14 116/68 100 Nasal Cannula 2.0 11/18/24 09:15 91 16 117/70 100 Nasal Cannula 2.0 11/18/24 09:00 90 18 115/70 100 Nasal Cannula 2.0 11/18/24 08:30 83 15 108/61 100 Nasal Cannula 2.0 11/18/24 08:00 98.1 83 15 106/61 100 Nasal Cannula 2.0 11/18/24 08:00 100 Nasal Cannula* 2 28 11/18/24 07:45 84 13 113/57 100 Nasal Cannula 2.0 11/18/24 07:17 78 15 11/18/24 07:15 82 14 102/55 100 Nasal Cannula 2.0 11/18/24 06:59 78 15 11/18/24 06:59 78 16 N/Cannula Low lpm 2.0 11/18/24 05:55 75 17 92/54 96 11/18/24 05:40 77 16 97/52 100 11/18/24 05:25 75 15 98/61 100 11/18/24 05:10 75 12 98/53 100 LABS: Laboratory: Test 11/18/24 07:28 11/18/24 00:57 11/17/24 17:52 11/17/24 17:38 Range/Units White Blood Count 3.1 L 4.8-10.8 K/uL Red Blood Count 2.61 L 4.50-6.20 MIL/uL Hemoglobin 7.2 L 14.0-18.0 g/dL Hematocrit 23.0 L 42-54 % Mean Corpuscular Volume 88.1 79-99 fL Mean Corpuscular Hemoglobin 27.6 27.0-33.0 pg Mean Corpuscular Hemoglobin Concent 31.3 L 32.0-36.0 g/dL Red Cell Distribution Width 16.4 H 11.0-15.5 % Platelet Count 76 L 130-400 K/uL Mean Platelet Volume 10.3 7.5-10.5 fL Immature Granulocyte % (Auto) 0.3 0-1 % Neutrophils (%) (Auto) 52.5 40.0-77.0 % Lymphocytes (%) (Auto) 22.0 21.0-51.0 % Monocytes (%) (Auto) 16.6 H 3.0-13.0 % Eosinophils (%) (Auto) 8.0 0.0-8.0 % Basophils (%) (Auto) 0.6 0.0-5.0 % Neutrophils # (Auto) 1.6 L 1.8-7.7 K/uL Lymphocytes # (Auto) 0.7 L 1.0-4.8 K/uL Monocytes # (Auto) 0.5 0.1-1.0 K/uL Eosinophils # (Auto) 0.25 0.00-0.70 K/uL Basophils # (Auto) 0.02 0.00-0.20 K/uL Absolute Immature Granulocyte (auto 0.01 0-1 K/uL Nucleated Red Blood Cells 0.0 0.0-0.19 % Sodium Level 137 136-145 mmol/L Potassium Level 4.2 3.5-5.1 mmol/L Chloride Level 105 101-111 mmol/L Carbon Dioxide Level 23 21-32 mmol/L Blood Urea Nitrogen 19 H 7-18 mg/dL Creatinine 1.3 0.5-1.3 mg/dL Glomerular Filtration Rate Calc 63 >90 mL/min Random Glucose 101 70-105 mg/dL Total Calcium 8.2 L 8.5-10.1 mg/dL Total Bilirubin 0.9 0.2-1.0 mg/dL Aspartate Amino Transf (AST/SGOT) 21 10-37 U/L Alanine Aminotransferase (ALT/SGPT) 20 12-78 U/L Alkaline Phosphatase 108 50-136 U/L Ammonia 67 H 11-32 umol/L Total Protein 5.4 L 6.0-8.3 g/dL Albumin 2.6 L 3.5-5.0 g/dL Lactic Acid Level 1.5 0.8-2.5 mmol/L Urine Color YELLOW YELLOW Urine Appearance CLEAR CLEAR Urine pH 6.0 5.0-8.0 Urine Specific [place] 1.018 1.001-1.031 Urine Protein NEGATIVE NEGATIVE mg/dL Urine Glucose (UA) NEGATIVE NEGATIVE mg/dL Urine Ketones NEGATIVE NEGATIVE mg/dL Urine Occult Blood NEGATIVE NEGATIVE Urine Nitrate NEGATIVE NEGATIVE Urine Bilirubin NEGATIVE NEGATIVE mg/dL Urine Urobilinogen 2.0 H 0.2-1.0 mg/dL Urine Leukocyte Esterase NEGATIVE NEGATIVE Claudio/uL Urine Opiates Screen NEGATIVE NEGATIVE Urine Barbiturates Screen NEGATIVE NEGATIVE Urine Phencyclidine Screen NEGATIVE NEGATIVE Urine Amphetamines Screen NEGATIVE NEGATIVE Urine Benzodiazepines Screen NEGATIVE NEGATIVE Urine Cocaine Screen NEGATIVE NEGATIVE Urine Marijuana (THC) Screen NEGATIVE NEGATIVE Blood Gas Specimen Type Arterial Arterial Blood pH 7.497 H 7.350-7.450 Arterial Blood Partial Pressure CO2 30 L 35-48 mmHg Arterial Blood Partial Pressure O2 < 45.0 *L 83.0-108.0 mmHg Arterial Blood HCO3 22.7 21.0-28.0 mmol/L Arterial Blood Oxygen Saturation 43.9 L 94.0-98.0 % Arterial Blood Base Excess -0.2 -2.0-3.0 mmol/L Hemoglobin (Blood Gas) 8.1 L 13.5-17.5 g/dL Sodium (Blood Gas) 134 L 136-145 MMOL/L Bedside Potassium (Blood Gas) 4.2 3.4-4.5 MMOL/L Bedside Chloride (Blood Gas) 104 98-107 MMOL/L Bedside Glucose (Blood Gas) 99 H 65-95 MG/DL Bedside Ionized Calcium (Blood Gas) 1.18 1.15-1.33 MMOL/L Bedside Lactic Acid (Blood Gas) 1.68 H 0.36-0.75 MMOL/L Blood Gas Temperature 37.0 35.5-37.0 CELSIUS Blood Gas Vent Mode RA ROOM AIR FiO2 21.0 % Blood Gas Specimen Comment RBMELANIE Test 11/17/24 14:21 Range/Units White Cell Morphology Comment See comments Erythrocyte Sedimentation Rate 7 0-20 MM/HR Prothrombin Time 12.2 H 9.6-11.6 SEC Prothromb Time International Ratio 1.17 H 0.85-1.15 Activated Partial Thromboplast Time 24.7 L 26.3-35.5 SEC Hemoglobin A1c 4.2 4.0-6.0 % Estimated Average Glucose (eAG) 74 70-126 mg/dL Direct Bilirubin 0.4 H 0.0-0.3 mg/dL Total Creatine Kinase 73 21-232 U/L Troponin I High Sensitivity 5 4-75 ng/L C-Reactive Protein, Quantitative 2.70 0.5-3.0 mg/L Procalcitonin < 0.05 L 0.05-0.5 ng/mL Serum Alcohol < 3 0-10 mg/dL Current Medications Medications (Trade) Dose Ordered Sig/Yumiko Route PRN Reason Start Time Stop Time Status Last Admin Dose Admin Acetaminophen (TYLenol 325MG TAB) 650 mg Q6H PRN PO MILD PAIN (1-3) 11/17/24 17:30 12/17/24 17:29 Albuterol (DUOneb) 1 udvial Q6H PRN IH SHORTNESS OF BREATH 11/17/24 17:30 12/17/24 17:29 11/18/24 06:58 1 UDVIAL Budesonide (Pulmicort 0.5 Mg/2ml) 0.5 mg BIDRESP IH 11/17/24 18:00 12/17/24 17:59 11/18/24 06:58 0.5 MG Ceftriaxone Sodium (Rocephin 2gm Inj) 2 gm DAILY IVPB 11/18/24 09:00 11/28/24 08:59 11/18/24 08:39 2 GM Chlordiazepoxide HCl (LIBrium 25 MG CAP) 25 mg Q2H PRN PO ALCOHOL WITHDRAWAL PROTOCOL 11/18/24 08:00 11/25/24 07:59 Chlordiazepoxide HCl (LIBrium 25 MG CAP) 50 mg Q1H PRN PO ALCOHOL WITHDRAWAL PROTOCOL 11/18/24 08:00 11/25/24 07:59 Dexmedetomidine/ Sodium Chloride (PRECEdex 400MCG/ 100ML-NS) 400 mcg PROTOCOL IV 11/17/24 19:30 12/17/24 19:29 11/18/24 01:55 400 MCG Dextrose (D50w) 50 ml AD PRN IV HYPOGLYCEMIA PROTOCOL 11/17/24 18:00 12/17/24 17:59 Diazepam (VALium 5 MG/ML 2 ML SYG) 10 mg Q4H PRN IVP ALCOHOL WITHDRAWAL PROTOCOL 11/18/24 08:00 11/25/24 07:59 Diazepam (VALium 5 MG/ML 2 ML SYG) 20 mg Q4H PRN IVP ALCOHOL WITHDRAWAL PROTOCOL 11/18/24 08:00 11/25/24 07:59 Folic Acid 1 mg/ Thiamine HCl 100 mg/Sodium Chloride 1,010 ml @ 100 mls/hr Q24H IV 11/17/24 17:30 11/18/24 01:32 DC Folic Acid 1 mg/ Thiamine HCl 100 mg/Sodium Chloride 1,010 ml @ 100 mls/hr Q24H IV 11/18/24 02:00 11/20/24 12:05 11/18/24 01:56 100 MLS/HR Glucagon (Glucagon 1mg Kit) 1 mg AD PRN IM HYPOGLYCEMIA PROTOCOL 11/17/24 18:00 12/17/24 17:59 Lactulose (Constulose 20gm/ 30ml Udcup) 20 gm Q4H4 PO 11/18/24 09:00 12/18/24 08:59 11/18/24 11:46 20 GM Midodrine (PROAMatine 5 MG TABLET) 5 mg TID PO 11/18/24 14:00 12/18/24 13:59 Multivitamins Therapeutic (Multivitamin Tablet) 1 tab DAILY PO 11/18/24 09:00 12/18/24 08:59 11/18/24 08:39 1 TAB Octreotide Acetate 1250 mcg/ Sodium Chloride 250 ml @ 0 mls/hr PROTOCOL IV 11/18/24 12:00 12/18/24 11:59 11/18/24 12:50 5 MLS/HR Ondansetron HCl (zoFRAN 4MG INJ) 4 mg Q4H PRN IV NAUSEA 11/18/24 08:00 12/18/24 07:59 Ondansetron HCl (zoFRAN 4MG INJ) 4 mg Q6H PRN IVP NAUSEA/VOMITING 11/17/24 17:30 11/18/24 07:56 DC Pantoprazole Sodium (PROTonix 40MG INJ) 40 mg Q12H IVP 11/17/24 17:30 11/18/24 11:51 DC 11/18/24 06:05 40 MG Pantoprazole Sodium 80 mg/ Sodium Chloride 100 ml @ 10 mls/hr Q10H IV 11/18/24 12:00 12/18/24 11:59 11/18/24 12:50 10 MLS/HR Pharmacy Profile Note (Pharmacy Communication) 1 each ONCE MISC 11/17/24 17:30 11/17/24 17:29 DC Pharmacy Profile Note (Pharmacy Communication) 1 each PROTOCOL PRN MISC ETOH Withdrawal Score changes 11/18/24 08:00 11/25/24 07:59 Promethazine HCl (Phenergan) 25 mg Q6H PRN PO NAUSEA 11/18/24 08:00 12/18/24 07:59 Rifaximin (XIFAXan 200 MG TABLET) 200 mg BID PO 11/18/24 09:00 12/18/24 08:59 11/18/24 08:39 200 MG Thiamine HCl (Vitamin B-1) 200 mg Q24H IVP 11/17/24 17:30 12/17/24 17:29 11/17/24 19:02 200 MG Thiamine HCl 100 mg/Folic Acid 1 mg/Sodium Chloride 1,011.2 ml @ 100 mls/ hr Q24H IV 11/18/24 08:00 11/20/24 18:07 DIAGNOSTICS / RADIOLOGY: PATIENT: KATHIE OSPINA MR#: [id number] : 1965 SEX: M AGE: 59 LOCATION: 2CH ORDER 18 STATUS: ADM IN REPORT#: [id number] SERVICE 13 REASON: decompensated liver cirrhosis, lactic acdiosis, assess for sig ascites ORDERING PHYSICIAN: HECTOR HILLMAN MD PROCEDURE: ABD PEL WO - CT ABDOMEN/PELVIS W/O CONTRAST EXAM:CT Abdomen and Pelvis Without IV contrast CLINICAL HISTORY: Decompensated liver cirrhosis, lactic acidosis, assess for significant ascites TECHNIQUE: Axial computed tomography images of the abdomen and pelvis without intravenous contrast. CONTRAST: No IV contrast. COMPARISON: None provided. FINDINGS: LUNG BASES: Atelectasis in the lung bases. No pleural effusions are seen. LIVER: Mild surface nodularity and volume redistribution. Few small calcified granulomas are seen in both lobes of the liver. GALLBLADDER AND BILE DUCTS: The gallbladder appears within normal limits. No radiopaque gallstones are seen. No biliary ductal dilatation is evident. PANCREAS: Unremarkable. SPLEEN: Enlarged, measuring 20 cm. ADRENAL GLANDS: Unremarkable. KIDNEYS, URETERS, AND BLADDER: The kidneys appear within normal limits. There is no hydronephrosis or hydroureter. No urinary calculi are seen. Bladder is unremarkable. STOMACH AND BOWEL: Unremarkable appearance of the stomach and bowel. No evidence of bowel obstruction. No evidence suggesting enteritis or colitis. Diverticulosis. PERITONEUM: Mild to moderate ascites is seen. Diffuse fat stranding of the omentum and mesentery. No free air. LYMPH NODES: Multiple reactive retroperitoneal and mesenteric lymph nodes, the largest measuring 1.3 cm in the paraaortic region. REPRODUCTIVE: Unremarkable as visualized. VASCULATURE: No evidence of abdominal aortic aneurysm. Mild atherosclerotic calcification of the aorta. BONES: Old rib fractures. No acute osseous pathology evident. Degenerative changes are seen in the visualised spine. IMPRESSION: 1. Mild to moderate ascites with diffuse omental and mesenteric fat stranding. 2. Cirrhotic liver. Splenomegaly /[place] DICTATED BY: MARIJA SALEEM MD DATE: 11/17/242124 ELECTRONICALLY SIGNED BY: MARIJA SALEEM MD DATE: 11/17/242124 PATIENT: KATHIE OSPINA MR#: [id number] : 1965 SEX: M AGE: 59 LOCATION: [facility] ORDER 37 STATUS: REG ER REPORT#: [id number] SERVICE 36 REASON: AMS ORDERING PHYSICIAN: MADI BOYD MD PROCEDURE: HEAD WO - CT HEAD/BRAIN W/O CONTRAST EXAM: CT Head Without IV contrast. CLINICAL HISTORY: AMS TECHNIQUE: Axial computed tomography images of the head/brain without intravenous contrast. COMPARISON: None provided. FINDINGS: BRAIN: No evidence of acute hemorrhage. No mass lesion. No CT evidence for acute territorial infarct. No midline shift or extra-axial collections. VENTRICLES: No hydrocephalus. ORBITS: The orbits are unremarkable. SINUSES AND MASTOIDS: The paranasal sinuses and mastoid air cells are clear. BONES: No fracture. SOFT TISSUES: Unremarkable. IMPRESSION: No acute intracranial abnormality. If clinical concern persist recommend MRI for further evaluation. /[place] DICTATED BY: YARELIS RUSSELL Jr., MD DATE: 11/17/241610 ELECTRONICALLY SIGNED BY: YARELIS RUSSELL Jr., MD DATE: 11/17/241610 PATIENT: KATHIE OSPINA MR#: [id number] : 1965 SEX: M AGE: 59 LOCATION: [facility] ORDER 13 STATUS: ADM IN REPORT#: [id number] SERVICE 12 REASON: assess for any pneumonia ORDERING PHYSICIAN: HECTOR HILLMAN MD PROCEDURE: CXR1VW - CHEST 1VW EXAM: CR Chest, 1 View. CLINICAL HISTORY: assess for any pneumonia COMPARISON: None provided. FINDINGS: LUNGS: The lungs show no infiltrate or other acute finding.Mild bibasilar atelectasis. PLEURAL SPACES: No pleural effusion or pneumothorax. MEDIASTINUM: Cardiac size and mediastinal contours within normal limits. BONES: No aggressive appearing osseous lesion seen. Several old right rib fracture deformities noted. IMPRESSION: No acute cardiopulmonary pathology is evident. /[place] DICTATED BY: YARELIS RUSSELL Jr., MD DATE: 11/17/242137 ELECTRONICALLY SIGNED BY: YARELIS RUSSELL Jr., MD DATE: 11/17/242137 ASSESSMENT: Decompensated alcoholic liver cirrhosis with severe hepatic encephalopathy (MELD Score 15), POA Lactic acidosis, POA MATTIE on CKD, POA Hyponatremia, POA Chronic anemia, POA History of esophageal varices requiring banding in 09/2024, POA History of portal hypertensive gastropathy, POA History of chronic thrombocytopenia from underlying portal hypertension, POA Recent history of hepatic encephalopathy requiring hospitalization in [facility], 10/2024, POA Long-term history of alcoholism, POA History of tobacco use, POA Debility, POA PLAN: Decompensated alcoholic liver cirrhosis with severe hepatic encephalopathy (MELD Score 15), POA History of esophageal varices requiring banding in 09/2024, POA History of portal hypertensive gastropathy, POA *Rifaximin 200 mg b.i.d. ordered for elevated ammonia levels. *Started the patient on Protonix drip 40mg and octreotide drip in case of a gastrointestinal bleed. *Results of FOBT still pending. *Gastroenterology consult has been placed. Pending recommendations. *Patient has a MELD score of 15 which is a high risk of 30 day mortality and higher risk of complications like variceal bleed, hepatic encephalopathy and hepatorenal syndrome and should be closely monitored closely for decompensation. Chronic anemia, POA * Iron panel and transferrin saturation ordered in order to work the patient up for anemia. *Check hemoglobin level at 6:00 p.m. *Monitor H & H. Keep Hgb > 7 *Transfuse 1 unit of PRBC for Hgb < 7 Chronic Thrombocytopenia, POA *Transfuse 1 pack of platelets for platelets < 20,0000 *Monitor for any signs and symptoms of bleeding MATTIE on CKD, POA Nephrology consult has been placed. *Strict monitoring of intake and output *Discontinue all nephrotoxic agents *Monitor electrolytes and replace as needed *Goal urine output of 30 ml/h or 0.5ml/kg/hr *Medications to be dosed according to renal function Long-term history of alcoholism, POA History of tobacco use, POA *Continue with the alcohol withdrawal as per protocol *Educated family about the need to desist from alcohol usage G I prophylaxis: Famotidine 20mg PO bid DVT prophylaxis: Lovenox 30mg SQ bid Further course depends on labs and consult recommendations ATTESTATION BY PHYSICIAN I have seen and examined the patient. I reviewed the documentation, medical decision making, and treatment plan as noted by the resident provider above. I agree with the findings and plan of care. KORINA KRUGER MD OBI,SUHA Sheikh MD Nov 18, 2024 14:03
--- NOTE | 2024-11-18 18:12 | CONS ---
REFERRING PHYSICIAN: Rodney Hubbard M.D. REASON FOR CONSULTATION: Renal failure. HISTORY OF PRESENT ILLNESS: A 59-year-old male with a history of known cirrhosis. The patient with a history of chronic alcohol use. He initially presented to the hospital with complaints of confusion and agitation. The patient was noted to have hepatic encephalopathy. The patient apparently was just recently hospitalized at an outside hospital with very similar issues. He has a history of heavy alcohol use. Laboratory values revealed an elevated BUN and creatinine and he is being seen in consultation for all of the above. The history is mainly obtained via the chart as the patient is really unable to give any sort of history. PAST MEDICAL HISTORY: Cirrhosis, varices. PAST SURGICAL HISTORY: EGD. SOCIAL HISTORY: History of the alcohol use. FAMILY HISTORY: There is no renal disease in the family. ALLERGIES: PENICILLIN. MEDICATIONS: All noted. REVIEW OF SYSTEMS: He is really unable to give any review of systems. PHYSICAL EXAMINATION: VITAL SIGNS: Blood pressure is 108/61, pulse 80s. He is afebrile. GENERAL: He is a chronically ill, older than appearing male, lying in bed in the medical floor. HEENT: Head is atraumatic. Pupils are equal, round, and reactive to light. Oropharynx is without exudate. Nares clear. NECK: There is no JVP. There is no thyromegaly. No masses. CARDIOVASCULAR: Regular. There is no S3 or S4 gallop. LUNGS: Coarse with equal thoracic movement. ABDOMEN: Soft. He does have ascites. EXTREMITIES: Reveal no clubbing, no cyanosis. NEUROLOGIC: He responds to deep stimuli. He is on Precedex. SKIN: Reveals no rash, no nodules. BACK: There is no CVA tenderness. There are no back deformities. LABORATORY DATA: Sodium 137, potassium 4.2, BUN 19, creatinine is 1.3. Hemoglobin 7.2, hematocrit 23, white blood cell count is 3000, platelet count is 76. Urinalysis is noted. CT scan reveals the ascites. Chest x-ray is noted. IMPRESSION: * Acute renal failure. * Hepatic encephalopathy. * Pancytopenia. * Hypotension. * History of the alcohol use. PLAN: The patient with significant renal dysfunction most likely related to prerenal ischemia from his cirrhosis. We will send off urine for electrolytes. The patient with relative hypotension and will be started on low-dose midodrine 5 mg p.o. t.i.d. and we will continue to monitor the patient's chemistries closely. The patient remains on lactulose for the encephalopathy. All labs can be repeated in the morning. I did discuss the case in detail with the patient's family. The patient does have significant anemia. We will check iron levels in the a.m. TID: [id number] RECEIPT: [id number]
--- NOTE | 2024-11-18 18:15 | NUR ---
CM NOTE Met with pt spouse and states pt lives with spouse, is independent with adls/ambulation. no dme no home services.dc plan is back home dc. Addendum: 11/18/24 at 1818 by TESHA EMERSON CM Amended: Links added.
[2024-11-18] MEDS: THIAMINE HCL 100 MG/ML 2ML VIAL IVP SCH (20:56)
[2024-11-19] VITALS (37 sets, daily range): BP systolic 85–103; BP diastolic 42–69; PULSE 69–80; RESP 15–22; TEMP 97.9–98.6; O2SAT 96–100
[2024-11-19 04:53] LABS: IMMATURE GRANULOCYTE ABSOLUTE 0.01 K/uL (0-1); NUCLEATED RED BLOOD CELLS 0.0 % (0.0-0.19); PLATELET COUNT (AUTO) 73 K/uL (130-400); RED BLOOD CELL COUNT(AUTO) 2.75 MIL/uL (4.50-6.20); RED CELL DISTRIBUTION WIDTH 16.0 % (11.0-15.5); WHITE BLOOD COUNT (AUTO) 2.4 K/uL (4.8-10.8)
[2024-11-19 05:13] LABS: % IRON SATURATION 44.1 % (30-44); IRON, SERUM 175.0 mcg/dL (65-175)
[2024-11-19 05:20] LABS: ASPARTATE AMINOTRANSFERASE 23.0 U/L (10-37); CREATININE 1.4 mg/dL (0.5-1.3); GLOMERULAR FILTR. RATE CALC 57.0 mL/min (>90); GLUCOSE,RANDOM 109.0 mg/dL (70-105); SODIUM SERUM 137.0 mmol/L (136-145); TOTAL PROTEIN, SERUM 5.4 g/dL (6.0-8.3); UREA NITROGEN, BLOOD 21.0 mg/dL (7-18)
[2024-11-19 05:37] LABS: EOSINOPHILS % (MANUAL) 9 % (1-6); LYMPHOCYTES % (MANUAL) 11 % (22-44); MAN.DIFF COMMENT-IMPRESSION MANUAL DIFFERENTIAL; MONOCYTES % (MANUAL) 19 % (2-9); REACTIVE LYMPHOCYTES 8 % (0-0); SEGMENTED NEUTROPHILS % 53 % (40-70)
[2024-11-19 05:38] LABS: PLATELET MORPHOLOGY COMMENT DECREASED
[2024-11-19 07:16] LABS: IMMATURE GRANULOCYTE ABSOLUTE 0.01 K/uL (0-1); NUCLEATED RED BLOOD CELLS 0.0 % (0.0-0.19); PLATELET COUNT (AUTO) 66 K/uL (130-400); RED BLOOD CELL COUNT(AUTO) 2.85 MIL/uL (4.50-6.20); RED CELL DISTRIBUTION WIDTH 16.3 % (11.0-15.5); WHITE BLOOD COUNT (AUTO) 2.5 K/uL (4.8-10.8)
[2024-11-19 07:36] LABS: ASPARTATE AMINOTRANSFERASE 26.0 U/L (10-37); CREATININE 1.4 mg/dL (0.5-1.3); GLOMERULAR FILTR. RATE CALC 57.0 mL/min (>90); GLUCOSE,RANDOM 115.0 mg/dL (70-105); SODIUM SERUM 137.0 mmol/L (136-145); TOTAL PROTEIN, SERUM 5.4 g/dL (6.0-8.3); UREA NITROGEN, BLOOD 21.0 mg/dL (7-18)
--- NOTE | 2024-11-19 10:53 | PN ---
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 According to the family, the patient wa s noted to be increasingly forgetful and disoriented over the past 24 hours with progressive restlessness and inappropriate behavior. There was no reported history of recent trauma, seizures, or loss of consciousness. Patient was unable to provide a history due to mental status changes, however collateral history from family reveals no fever, cough, or chest pain. No recent hematemesis, melena, or overt bleeding was reported. According to the family he was hospitalized for a few days in [facility] where he was diagnosed with hepatic encephalopathy, and was discharged on oral lactulose on 11/13/2024. He was also previously hospitalized in [facility] in September 2024 with GI bleed requiring upper endoscopy which showed esophageal varices which was banded. CT head and chest x-ray results were unremarkable. A CT abdomen and pelvis without contrast showed mild to moderate ascites with diffuse omental and mesenteric fat stranding. Patient had a CIWA score of 11 and alcohol withdrawal protocol was initiated. FOBT was ordered, pending the results. Patient was started on Ceftriaxone 1g, Protonix 40mg IV and Lactulose enema since Ammonia level was 124. Gastroenterology and BIS consult were ordered and patient was admitted for severe hepatic encephalopathy 11/18/2024: Lying in bed at the time of evaluation. Alert only to name and location. As per the nurse, patient is off all sedatives at this time . Was unable to give a history because of his cognitive state. Vital signs : Temperature 98.2, pulse 77, respirations 16, BP 117/70, maintaining saturation at 100% on 2 L nasal cannula. Labs showed WBC 1.3 down from 4.1 yesterday, hemoglobin 7.2 from 7.3, hematocrit 23 and platelets 76 down from 90 yesterday. Chemistry: Sodium 134, potassium 4.1, BUN 22, creatinine 1.5 , lactic acid 1.5 and ammonia 67 down from 124 yesterday. Ordered an iron panel and transferrin saturation in order to work the patient up for anemia. Check hemoglobin level at 6:00 p.m. Ordered rifaximin 200 mg b.i.d. for the elevated ammonia and started the patient on Protonix drip 40mg and octreotide drip in case of a gastrointestinal bleed. Results of FOBT still pending. Patient has a MELD score of 15 which is a high risk of 30 day mortality and higher risk of complications like variceal bleed, hepatic encephalopathy and hepatorenal syndrome and should be closely monitored for decompensation. Gastroenterology consult has been ordered, pending their recommendations. 11/19/2024: Patient was seen and evaluated in room 215. He was combative, making history- taking difficult, and is currently on the [facility] protocol. Overnight, he remained combative and received diazepam 20 mg. Nephrology was consulted; given his BUN of 21 and creatinine of 1.4, the etiology is considered likely pre-renal, and he was started on low-dose midodrine 5 mg PO daily. Urine electrolytes have been ordered for further evaluation. Laboratory trends show bilirubin increased from 0.9 to 1.8 mg/dL, while ammonia remained stable at 66 mol/L. He received 1 unit of leukocyte-reduced PRBC, with hemoglobin now 7.7 g/dL. His blood pressure is 91/49 mmHg. REVIEW OF SYSTEMS: Unable to obtain ROS as patient is lethargic, combative and obtunded PHYSICAL EXAM GENERAL APPEARANCE: Patient is obtunded, appears chronically ill, opens eyes to call NEUROLOGICAL: Cranial nerves intact, moving upper and lower extremity with stimuli, no focal deficits noted HEENT: Face is symmetric. Pupils are equal and reactive. Extraocular movements are intact. NECK: Supple. No JVD. No thyromegaly. No submental, submandibular, pre- /postauricular, occipital or supraclavicular lymphadenopathy. CHEST: Normal chest expansion. No Telemetry. LUNGS: Absence of any rales, rhonchi or any wheezing. CARDIOVASCULAR: Regular. S1 and S2 normal. No appreciable rubs, murmurs or gallops. ABDOMEN: Soft, mildly distended prominent veins noted, reducible umbilical hernia noted : Deferred. No [place]. EXTREMITIES: Non-edematous and not cyanotic. No clubbing. Good capillary refill. SKIN: No skin breakdown. Vital Signs (last 8hr) Date Time Temp Pulse Resp B/P (MAP) Pulse Ox O2 Delivery O2 Flow Rate FiO2 11/19/24 08:45 80 22 98/69 100 Nasal Cannula 2.0 11/19/24 08:30 78 15 93/67 100 Nasal Cannula 2.0 11/19/24 08:16 75 16 N/Cannula Low lpm 2.0 28 11/19/24 08:15 74 15 101/58 100 Nasal Cannula 2.0 11/19/24 08:00 98.6 77 16 96/58 99 Nasal Cannula 2.0 11/19/24 08:00 100 Nasal Cannula* 2 28 11/19/24 07:45 79 17 102/53 100 Nasal Cannula 2.0 11/19/24 07:30 78 17 103/46 100 Nasal Cannula 2.0 11/19/24 07:15 80 17 95/52 96 Nasal Cannula 2.0 11/19/24 06:45 75 18 88/48 99 Nasal Cannula 2.0 11/19/24 06:32 70 16 11/19/24 06:30 80 17 97/42 100 Nasal Cannula 2.0 11/19/24 06:15 71 17 95/55 97 Nasal Cannula 2.0 11/19/24 06:00 72 18 102/63 98 Nasal Cannula 2.0 11/19/24 05:45 71 17 101/54 97 Nasal Cannula 2.0 11/19/24 05:30 69 17 94/46 93 Nasal Cannula 2.0 11/19/24 05:15 73 18 85/56 98 Nasal Cannula 2.0 11/19/24 05:00 72 19 94/53 98 Nasal Cannula 2.0 11/19/24 04:45 71 18 91/49 98 Nasal Cannula 2.0 11/19/24 04:30 72 18 89/58 98 Nasal Cannula 2.0 11/19/24 04:15 71 19 98/55 97 Nasal Cannula 2.0 11/19/24 04:00 97.9 71 19 93/53 94 Nasal Cannula 2.0 11/19/24 04:00 100 Nasal Cannula* 2 28 11/19/24 03:45 70 18 98 Nasal Cannula 2.0 11/19/24 03:30 70 18 96/55 98 Nasal Cannula 2.0 11/19/24 03:15 70 19 103/59 98 Nasal Cannula 2.0 11/19/24 02:45 70 18 94/65 98 Nasal Cannula 2.0 LABS: Laboratory: Test 11/19/24 07:09 11/19/24 04:06 11/18/24 00:57 11/17/24 17:52 Range/Units White Blood Count 2.5 L 4.8-10.8 K/uL Red Blood Count 2.85 L 4.50-6.20 MIL/uL Hemoglobin 7.7 L 14.0-18.0 g/dL Hematocrit 25.9 L 42-54 % Mean Corpuscular Volume 90.9 79-99 fL Mean Corpuscular Hemoglobin 27.0 27.0-33.0 pg Mean Corpuscular Hemoglobin Concent 29.7 L 32.0-36.0 g/dL Red Cell Distribution Width 16.3 H 11.0-15.5 % Platelet Count 66 L 130-400 K/uL Mean Platelet Volume 10.5 7.5-10.5 fL Immature Granulocyte % (Auto) 0.4 0-1 % Neutrophils (%) (Auto) 49.4 40.0-77.0 % Lymphocytes (%) (Auto) 22.9 21.0-51.0 % Monocytes (%) (Auto) 15.7 H 3.0-13.0 % Eosinophils (%) (Auto) 11.2 H 0.0-8.0 % Basophils (%) (Auto) 0.4 0.0-5.0 % Neutrophils # (Auto) 1.2 L 1.8-7.7 K/uL Lymphocytes # (Auto) 0.6 L 1.0-4.8 K/uL Monocytes # (Auto) 0.4 0.1-1.0 K/uL Eosinophils # (Auto) 0.28 0.00-0.70 K/uL Basophils # (Auto) 0.01 0.00-0.20 K/uL Absolute Immature Granulocyte (auto 0.01 0-1 K/uL Nucleated Red Blood Cells 0.0 0.0-0.19 % Sodium Level 137 136-145 mmol/L Potassium Level 4.6 3.5-5.1 mmol/L Chloride Level 107 101-111 mmol/L Carbon Dioxide Level 22 21-32 mmol/L Blood Urea Nitrogen 21 H 7-18 mg/dL Creatinine 1.4 H 0.5-1.3 mg/dL Glomerular Filtration Rate Calc 57 >90 mL/min Random Glucose 115 H 70-105 mg/dL Total Calcium 7.7 L 8.5-10.1 mg/dL Total Bilirubin 1.7 H 0.2-1.0 mg/dL Aspartate Amino Transf (AST/SGOT) 26 10-37 U/L Alanine Aminotransferase (ALT/SGPT) 20 12-78 U/L Alkaline Phosphatase 106 50-136 U/L Ammonia 66 H 11-32 umol/L Total Protein 5.4 L 6.0-8.3 g/dL Albumin 2.7 L 3.5-5.0 g/dL Segmented Neutrophils % 53 40-70 % Lymphocytes % (Manual) 11 L 22-44 % Monocytes % (Manual) 19 H 2-9 % Eosinophils % (Manual) 9 H 1-6 % Differential Comment MANUAL DIFFERENTIAL Reactive Lymphocytes 8 H 0-0 % White Cell Morphology Comment See comments Platelet Morphology Comment DECREASED Red Blood Cell Morphology ANISO 1+ Iron Level 175 65-175 mcg/dL Total Iron Binding Capacity 396 250-450 mcg/dL Percent Iron Saturation 44.1 H 30-44 % Lactic Acid Level 1.5 0.8-2.5 mmol/L Urine Color YELLOW YELLOW Urine Appearance CLEAR CLEAR Urine pH 6.0 5.0-8.0 Urine Specific [place] 1.018 1.001-1.031 Urine Protein NEGATIVE NEGATIVE mg/dL Urine Glucose (UA) NEGATIVE NEGATIVE mg/dL Urine Ketones NEGATIVE NEGATIVE mg/dL Urine Occult Blood NEGATIVE NEGATIVE Urine Nitrate NEGATIVE NEGATIVE Urine Bilirubin NEGATIVE NEGATIVE mg/dL Urine Urobilinogen 2.0 H 0.2-1.0 mg/dL Urine Leukocyte Esterase NEGATIVE NEGATIVE Claudio/uL Urine Opiates Screen NEGATIVE NEGATIVE Urine Barbiturates Screen NEGATIVE NEGATIVE Urine Phencyclidine Screen NEGATIVE NEGATIVE Urine Amphetamines Screen NEGATIVE NEGATIVE Urine Benzodiazepines Screen NEGATIVE NEGATIVE Urine Cocaine Screen NEGATIVE NEGATIVE Urine Marijuana (THC) Screen NEGATIVE NEGATIVE Test 11/17/24 17:38 11/17/24 14:21 Range/Units Blood Gas Specimen Type Arterial Arterial Blood pH 7.497 H 7.350-7.450 Arterial Blood Partial Pressure CO2 30 L 35-48 mmHg Arterial Blood Partial Pressure O2 < 45.0 *L 83.0-108.0 mmHg Arterial Blood HCO3 22.7 21.0-28.0 mmol/L Arterial Blood Oxygen Saturation 43.9 L 94.0-98.0 % Arterial Blood Base Excess -0.2 -2.0-3.0 mmol/L Hemoglobin (Blood Gas) 8.1 L 13.5-17.5 g/dL Sodium (Blood Gas) 134 L 136-145 MMOL/L Bedside Potassium (Blood Gas) 4.2 3.4-4.5 MMOL/L Bedside Chloride (Blood Gas) 104 98-107 MMOL/L Bedside Glucose (Blood Gas) 99 H 65-95 MG/DL Bedside Ionized Calcium (Blood Gas) 1.18 1.15-1.33 MMOL/L Bedside Lactic Acid (Blood Gas) 1.68 H 0.36-0.75 MMOL/L Blood Gas Temperature 37.0 35.5-37.0 CELSIUS Blood Gas Vent Mode RA ROOM AIR FiO2 21.0 % Blood Gas Specimen Comment RBMELANIE Erythrocyte Sedimentation Rate 7 0-20 MM/HR Prothrombin Time 12.2 H 9.6-11.6 SEC Prothromb Time International Ratio 1.17 H 0.85-1.15 Activated Partial Thromboplast Time 24.7 L 26.3-35.5 SEC Hemoglobin A1c 4.2 4.0-6.0 % Estimated Average Glucose (eAG) 74 70-126 mg/dL Direct Bilirubin 0.4 H 0.0-0.3 mg/dL Total Creatine Kinase 73 21-232 U/L Troponin I High Sensitivity 5 4-75 ng/L C-Reactive Protein, Quantitative 2.70 0.5-3.0 mg/L Procalcitonin < 0.05 L 0.05-0.5 ng/mL Serum Alcohol < 3 0-10 mg/dL Current Medications Medications (Trade) Dose Ordered Sig/Yumiko Route PRN Reason Start Time Stop Time Status Last Admin Dose Admin Acetaminophen (TYLenol 325MG TAB) 650 mg Q6H PRN PO MILD PAIN (1-3) 11/17/24 17:30 12/17/24 17:29 Albuterol (DUOneb) 1 udvial Q6H PRN IH SHORTNESS OF BREATH 11/17/24 17:30 12/17/24 17:29 11/19/24 06:32 1 UDVIAL Budesonide (Pulmicort 0.5 Mg/2ml) 0.5 mg BIDRESP IH 11/17/24 18:00 12/17/24 17:59 11/19/24 06:31 0.5 MG Ceftriaxone Sodium (Rocephin 2gm Inj) 2 gm DAILY IVPB 11/18/24 09:00 11/28/24 08:59 11/19/24 08:24 2 GM Chlordiazepoxide HCl (LIBrium 25 MG CAP) 25 mg Q2H PRN PO ALCOHOL WITHDRAWAL PROTOCOL 11/18/24 08:00 11/19/24 09:08 DC Chlordiazepoxide HCl (LIBrium 25 MG CAP) 50 mg Q1H PRN PO ALCOHOL WITHDRAWAL PROTOCOL 11/18/24 08:00 11/25/24 07:59 Dexmedetomidine/ Sodium Chloride (PRECEdex 400MCG/ 100ML-NS) 400 mcg PROTOCOL IV 11/17/24 19:30 12/17/24 19:29 11/19/24 03:26 400 MCG Dextrose (D50w) 50 ml AD PRN IV HYPOGLYCEMIA PROTOCOL 11/17/24 18:00 12/17/24 17:59 Diazepam (VALium 5 MG/ML 2 ML SYG) 5 mg Q6H IV 11/19/24 09:30 11/26/24 09:29 11/19/24 09:19 5 MG Diazepam (VALium 5 MG/ML 2 ML SYG) 10 mg Q4H PRN IVP ALCOHOL WITHDRAWAL PROTOCOL 11/18/24 08:00 11/19/24 09:08 DC 11/18/24 21:44 10 MG Diazepam (VALium 5 MG/ML 2 ML SYG) 20 mg Q4H PRN IVP ALCOHOL WITHDRAWAL PROTOCOL 11/18/24 08:00 11/19/24 09:04 DC Folic Acid 1 mg/ Thiamine HCl 100 mg/Sodium Chloride 1,010 ml @ 100 mls/hr Q24H IV 11/17/24 17:30 11/18/24 01:32 DC Folic Acid 1 mg/ Thiamine HCl 100 mg/Sodium Chloride 1,010 ml @ 100 mls/hr Q24H IV 11/18/24 02:00 11/20/24 12:05 11/19/24 02:49 100 MLS/HR Glucagon (Glucagon 1mg Kit) 1 mg AD PRN IM HYPOGLYCEMIA PROTOCOL 11/17/24 18:00 12/17/24 17:59 Lactulose (Constulose 20gm/ 30ml Udcup) 20 gm Q4H4 PO 11/18/24 09:00 12/18/24 08:59 11/19/24 08:23 20 GM Midodrine (PROAMatine 5 MG TABLET) 5 mg TID PO 11/18/24 14:00 11/19/24 09:19 DC 11/19/24 08:23 5 MG Midodrine (PROAMatine 5 MG TABLET) 10 mg TID PO 11/19/24 14:00 12/19/24 13:59 Multivitamins Therapeutic (Multivitamin Tablet) 1 tab DAILY PO 11/18/24 09:00 12/18/24 08:59 11/19/24 08:23 1 TAB Octreotide Acetate 1250 mcg/ Sodium Chloride 250 ml @ 0 mls/hr PROTOCOL IV 11/18/24 12:00 12/18/24 11:59 11/18/24 12:50 5 MLS/HR Ondansetron HCl (zoFRAN 4MG INJ) 4 mg Q4H PRN IV NAUSEA 11/18/24 08:00 12/18/24 07:59 Ondansetron HCl (zoFRAN 4MG INJ) 4 mg Q6H PRN IVP NAUSEA/VOMITING 11/17/24 17:30 11/18/24 07:56 DC Pantoprazole Sodium (PROTonix 40MG INJ) 40 mg Q12H IVP 11/17/24 17:30 11/18/24 11:51 DC 11/18/24 06:05 40 MG Pantoprazole Sodium 80 mg/ Sodium Chloride 100 ml @ 10 mls/hr Q10H IV 11/18/24 12:00 12/18/24 11:59 11/19/24 07:38 10 MLS/HR Pharmacy Profile Note (Pharmacy Communication) 1 each ONCE MISC 11/17/24 17:30 11/17/24 17:29 DC Pharmacy Profile Note (Pharmacy Communication) 1 each PROTOCOL PRN MISC ETOH Withdrawal Score changes 11/18/24 08:00 11/25/24 07:59 Promethazine HCl (Phenergan) 25 mg Q6H PRN PO NAUSEA 11/18/24 08:00 12/18/24 07:59 Rifaximin (XIFAXan 200 MG TABLET) 200 mg BID PO 11/18/24 09:00 12/18/24 08:59 11/19/24 08:24 200 MG Thiamine HCl (Vitamin B-1) 200 mg Q24H IVP 11/17/24 17:30 11/18/24 14:00 DC 11/17/24 19:02 200 MG Thiamine HCl (Vitamin B-1) 300 mg Q8H5 IVP 11/18/24 21:00 12/19/24 20:59 11/19/24 04:27 300 MG Thiamine HCl 100 mg/Folic Acid 1 mg/Sodium Chloride 1,011.2 ml @ 100 mls/ hr Q24H IV 11/18/24 08:00 11/19/24 02:31 DC DIAGNOSTICS / RADIOLOGY: [ ] ASSESSMENT: Decompensated alcoholic liver cirrhosis with severe hepatic encephalopathy (MELD Score 15), POA Lactic acidosis, POA MATTIE on CKD, POA Hyponatremia, POA Chronic anemia, POA History of esophageal varices requiring banding in 09/2024, POA History of portal hypertensive gastropathy, POA History of chronic thrombocytopenia from underlying portal hypertension, POA Recent history of hepatic encephalopathy requiring hospitalization in [facility], 10/2024, POA Long-term history of alcoholism, POA History of tobacco use, POA Debility, POA PLAN: Decompensated alcoholic liver cirrhosis with severe hepatic encephalopathy (MELD Score 15), POA History of esophageal varices requiring banding in 09/2024, POA History of portal hypertensive gastropathy, POA *Rifaximin 200 mg b.i.d. ordered for elevated ammonia levels. *Started the patient on Protonix drip 40mg and octreotide drip in case of a gastrointestinal bleed. *Results of FOBT still pending. *Gastroenterology consult has been placed. Pending recommendations. *Patient has a MELD score of 15 which is a high risk of 30 day mortality and higher risk of complications like variceal bleed, hepatic encephalopathy and hepatorenal syndrome and should be closely monitored closely for decompensation. Chronic anemia, POA * Iron panel and transferrin saturation ordered in order to work the patient up for anemia. * Iron - 175, TIBC - 396, % sat - 44.1 *Monitor H & H. Keep Hgb > 7 *Transfused 1 unit of leucocyte reduced PRBC overnight as his Hgb was 6.9 Chronic Thrombocytopenia, POA *Transfuse 1 pack of platelets for platelets < 20,0000 *Monitor for any signs and symptoms of bleeding MATTIE on CKD, POA *Nephrology consult recommended Urine electrolytes, considering it to be pre - renal cause *Started low dose midodrine 5 mg PO TID *Strict monitoring of intake and output *Discontinue all nephrotoxic agents *Monitor electrolytes and replace as needed *Goal urine output of 30 ml/h or 0.5ml/kg/hr *Medications to be dosed according to renal function Long-term history of alcoholism, POA History of tobacco use, POA *Continue with the alcohol withdrawal as per protocol *Educated family about the need to desist from alcohol usage G I prophylaxis: Famotidine 20mg PO bid DVT prophylaxis: Lovenox 30mg SQ bid Further course depends on labs and consult recommendations ATTESTATION BY PHYSICIAN I have seen and examined the patient. I reviewed the documentation, medical decision making, and treatment plan as noted by the resident provider above. I agree with the findings and plan of care. Nigel Rmairez MD, LAKSHMI MD Nov 19, 2024 10:53
--- NOTE | 2024-11-19 11:15 | PN ---
[facility] PROGRESS NOTE Date Patient Seen: Today, October Supervising Physician: Dr Bimal White Assessment: Acute hypoxic respiratory failure, POA Acute hepatic encephalopathy, initial ammonia level of 124, POA Acute decompensated liver cirrhosis, POA Lactic acidosis, POA Chronic alcoholism, POA Hepatorenal syndrome, POA Acute kidney injury, POA Hyponatremia, POA Chronic normocytic anemia, POA Interval history: Patient is awake following commands but extremely agitated Patient seen and examined, he was on Precedex overnight, we just turned off to see how he will do. I have scheduled the Valium q.6, if he can not tolerate being off the Precedex and less agitated we will consider transfer to floor Denies any chest pain shortness breath. Reports no nausea or vomiting. Plan: Continue CIWA protocol, we have turned off the Precedex but are scheduling Valium Q 6 hours Continue replacing electrolytes, thiamine, folic acid Monitoring closely for alcohol withdrawal Code Status: Full Resuscitation GI & DVT Prophylaxis REVIEW OF SYSTEMS: 12 point ROS reviewed , only + as per above PHYSICAL EXAM: GENERAL: alert, weak, awake oriented x 3 HEENT: EOMI, Sclera non icteric, moist mucosa NECK: Supple, no JVD, trachea midline LUNGS: Clear breath sounds bilaterally. No wheezes HEART: Regular rate and rhythm. Normal S1 and S2, without murmurs ABD: Obese Abdomen soft, nontender. Bowel sounds present EXT: No clubbing cyanosis or edema. NEURO: Alert and oriented to person, follows commands PLAN GI & NUTRITION: Continue nutritional support Aspirations precautions Prokinetic agents and laxatives as needed KIDNEYS & ELECTROLYTES: Strict monitoring of intake and output NEURO: Minimize central acting medications as possible. Fall Precautions. Well lighted room through the day and minimize interruptions through the night to prevent acute delirium. PULMONARY: Supplemental 02 as needed Titrate Fio2 to keep Spo2 > or = 90% DuoNebs and CPT as needed CARDIOVASCULAR: Follow hemodynamics. Titrate vasopressor to keep MAP >65 or systolic blood pressure >95mmHg ENDOCRINE: Maintain blood glucose between 100-180 at all times. Insulin sliding scale for blood glucose management RENAL: Avoid nephrotoxic agents INFECTIOUS DISEASE: Trend temperature. Felix-culture if febrile. HEMATOLOGY & COAGULATION: Monitor H&H. Keep Hgb > 7 Transfuse 1 unit of PRBC for Hgb < 7 Watch for any signs and symptoms of bleeding SKIN: Pressure ulcer prevention per facility protocol Total critical care time spent greater than 40 minutes, this excludes any procedures performed or any time spent in educational or teaching. ATTESTATION BY PHYSICIAN The patient has been seen and evaluated, the case has been discussed with the PA, I agree with the clinical findings and plan of care. Vitals/Labs Vital Signs Date Time Temp Pulse Resp B/P (MAP) Pulse Ox O2 Delivery O2 Flow Rate FiO2 11/19/24 08:45 80 22 98/69 100 Nasal Cannula 2.0 11/19/24 08:16 28 11/19/24 08:00 98.6 Laboratory Tests 11/18/24 19:28 11/19/24 01:39 11/19/24 04:06 11/19/24 07:09 Medications Current Medications Ceftriaxone Sodium 2 gm ONCE ONCE IVPB Last administered on 11/17/24at 15:06; Start 11/17/24 at 14:30; Stop 11/17/24 at 14:36; Status DC Lactulose 20 gm ONCE ONCE PO; Start 11/17/24 at 14:30; Stop 11/17/24 at 14:33; Status DC Diazepam 10 mg ONCE ONCE IVP Last administered on 11/17/24at 15:06; Start 11/17/24 at 14:30; Stop 11/17/24 at 14:33; Status DC Sodium Chloride 1,000 ml @ 0 mls/hr ONCE ONCE IV Last administered on 11/17/24at 15:04; Start 11/17/24 at 14:30; Stop 11/17/24 at 14:33; Status DC Thiamine HCl 200 mg Q24H IVP Last administered on 11/17/24at 19:02; Start 11/17/24 at 17:30; Stop 11/18/24 at 14:00; Status DC Folic Acid 1 mg/ Thiamine HCl 100 mg/Sodium Chloride 1,010 ml @ 100 mls/hr Q24H IV; Start 11/17/24 at 17:30; Stop 11/18/24 at 01:32; Status DC Pantoprazole Sodium 40 mg Q12H IVP Last administered on 11/18/24at 06:05; Start 11/17/24 at 17:30; Stop 11/18/24 at 11:51; Status DC Ceftriaxone Sodium 2 gm DAILY IVPB Last administered on 11/19/24at 08:24; Start 11/18/24 at 09:00; Stop 11/28/24 at 08:59 Pharmacy Profile Note 1 each ONCE MISC; Start 11/17/24 at 17:30; Stop 11/17/24 at 17:29; Status DC Lactulose 200 gm ONCE ONCE WA; Start 11/17/24 at 18:00; Stop 11/17/24 at 18:01; Status DC Acetaminophen 650 mg Q6H PRN PO; Start 11/17/24 at 17:30; Stop 12/17/24 at 17:29 Ondansetron HCl 4 mg Q6H PRN IVP; Start 11/17/24 at 17:30; Stop 11/18/24 at 07:56; Status DC Budesonide 0.5 mg BIDRESP IH Last administered on 11/19/24at 06:31; Start 11/17/24 at 18:00; Stop 12/17/24 at 17:59 Albuterol 1 udvial Q6H PRN IH Last administered on 11/19/24at 06:32; Start 11/17/24 at 17:30; Stop 12/17/24 at 17:29 Dextrose 50 ml AD PRN IV; Start 11/17/24 at 18:00; Stop 12/17/24 at 17:59 Glucagon 1 mg AD PRN IM; Start 11/17/24 at 18:00; Stop 12/17/24 at 17:59 Dexmedetomidine/ Sodium Chloride 400 mcg PROTOCOL IV Last administered on 11/19/24at 03:26; Start 11/17/24 at 19:30; Stop 12/17/24 at 19:29 Folic Acid 1 mg/ Thiamine HCl 100 mg/Sodium Chloride 1,010 ml @ 100 mls/hr Q24H IV Last administered on 11/19/24at 02:49; Start 11/18/24 at 02:00; Stop 11/20/24 at 12:05 Lactulose 200 gm ONCE ONCE [place] Last administered on 11/18/24at 01:55; Start 11/18/24 at 02:00; Stop 11/18/24 at 02:01; Status DC Chlordiazepoxide HCl 25 mg Q2H PRN PO; Start 11/18/24 at 08:00; Stop 11/19/24 at 09:08; Status DC Chlordiazepoxide HCl 50 mg Q1H PRN PO; Start 11/18/24 at 08:00; Stop 11/25/24 at 07:59 Ondansetron HCl 4 mg Q4H PRN IV; Start 11/18/24 at 08:00; Stop 12/18/24 at 07:59 Promethazine HCl 25 mg Q6H PRN PO; Start 11/18/24 at 08:00; Stop 12/18/24 at 07:59 Thiamine HCl 100 mg/Folic Acid 1 mg/Sodium Chloride 1,011.2 ml @ 100 mls/ hr Q24H IV; Start 11/18/24 at 08:00; Stop 11/19/24 at 02:31; Status DC Multivitamins Therapeutic 1 tab DAILY PO Last administered on 11/19/24at 08:23; Start 11/18/24 at 09:00; Stop 12/18/24 at 08:59 Pharmacy Profile Note 1 each PROTOCOL PRN MISC; Start 11/18/24 at 08:00; Stop 11/25/24 at 07:59 Diazepam 10 mg Q4H PRN IVP Last administered on 11/18/24at 21:44; Start 11/18/24 at 08:00; Stop 11/19/24 at 09:08; Status DC Diazepam 20 mg Q4H PRN IVP; Start 11/18/24 at 08:00; Stop 11/19/24 at 09:04; Status DC Rifaximin 200 mg BID PO Last administered on 11/19/24at 08:24; Start 11/18/24 at 09:00; Stop 12/18/24 at 08:59 Lactulose 20 gm Q4H4 PO Last administered on 11/19/24at 08:23; Start 11/18/24 at 09:00; Stop 12/18/24 at 08:59 Midodrine 5 mg TID PO Last administered on 11/19/24at 08:23; Start 11/18/24 at 14:00; Stop 11/19/24 at 09:19; Status DC Pantoprazole Sodium 80 mg/ Sodium Chloride 100 ml @ 10 mls/hr Q10H IV Last administered on 11/19/24at 07:38; Start 11/18/24 at 12:00; Stop 12/18/24 at 11:59 Octreotide Acetate 1250 mcg/ Sodium Chloride 250 ml @ 0 mls/hr PROTOCOL IV Last administered on 11/18/24at 12:50; Start 11/18/24 at 12:00; Stop 12/18/24 at 11:59 Thiamine HCl 300 mg Q8H5 IVP Last administered on 11/19/24at 04:27; Start 11/18/24 at 21:00; Stop 12/19/24 at 20:59 Diazepam 5 mg Q6H IV Last administered on 11/19/24at 09:19; Start 11/19/24 at 09:30; Stop 11/26/24 at 09:29 Midodrine 10 mg TID PO; Start 11/19/24 at 14:00; Stop 12/19/24 at 13:59 MARVA SAENZ Nov 19, 2024 11:15
--- NOTE | 2024-11-19 14:18 | DS ---
Discharge Summary Hospital Course Summary: The patient is a 59-year-old male with a history of decompensated liver cirrhosis secondary to alcohol use and chronic kidney disease, who presented with acute confusion, agitation, and combativeness. Initial evaluation revealed severe hepatic encephalopathy with an ammonia level of 124 mol/L, along with pancytopenia and anemia. He was started on lactulose enema, ceftriaxone, Protonix, and placed on CIVA protocol for alcohol withdrawal. CT head and chest imaging were unremarkable, while CT abdomen showed ascites and mesenteric fat stranding. Gastroenterology and BIS were consulted, and the patient was admitted for further management. During hospitalization, the patients condition remained unstable. He continued to demonstrate agitation and confusion, requiring benzodiazepines as per [facility] protocol. Laboratory workup revealed progressive leukopenia and thrombocytopenia, with hemoglobin dropping to 6.9 g/dL, for which he received one unit of leukocyte-reduced PRBC. His bilirubin ashok from 0.9 to 1.8 mg/dL, ammonia remained elevated, and creatinine fluctuated between 1.41.5 mg/dL. Nephrology evaluated the patient and suspected pre-renal azotemia, initiating midodrine therapy. He was also started on rifaximin, Protonix drip, and octreotide infusion given the concern for possible gastrointestinal bleed, though FOBT results were still pending at the time of discharge. His MELD score was calculated at 15, reflecting significant risk for complications including variceal bleeding, worsening encephalopathy, and hepatorenal syndrome. Despite ongoing medical issues and active recommendations for inpatient monitoring and specialist input, the patient chose to leave the hospital against medical advice. At the time of leaving, he remained hemodynamically tenuous with blood pressure as low as 91/49 mmHg, continued encephalopathy, and incomplete workup for his anemia and potential gastrointestinal bleeding. He is not considered medically stable for discharge and remains at high risk for decompensation, re-bleeding, worsening encephalopathy, infection, and mortality. The risks of leaving AMA were explained to the patient and his family.The patient signed out against medical advice. As per the primary nurse the patient does not wish to continue any treatment at this time and is refusing to stay and complete evaluation and disposition. The patient is fully aware of all the risks and benefits of leaving against medical advice. Possible benefits including correction of current medical condition and improvement of symptoms. However, the patient was advised that possible risk of leaving against medical advice including worsening of the current medical condition, including or causing . The patient or caregiver verbalized understanding of the risks and benefits discussed. Despite this, the patient signed out against medical advice. Supervisor [employer](s): CONSULTATION REPORT Name: KATHIE OSPINA Acct: [id number] MR: [id number] : 1965 Admit Date: 11/17/24 ELMER ROSALES MD [facility] [address] [place] [id number] REFERRING PHYSICIAN: Rodney Hubbard M.D. REASON FOR CONSULTATION: Renal failure. HISTORY OF PRESENT ILLNESS: A 59-year-old male with a history of known cirrhosis. The patient with a history of chronic alcohol use. He initially presented to the hospital with complaints of confusion and agitation. The patient was noted to have hepatic encephalopathy. The patient apparently was just recently hospitalized at an outside hospital with very similar issues. He has a history of heavy alcohol use. Laboratory values revealed an elevated BUN and creatinine and he is being seen in consultation for all of the above. The history is mainly obtained via the chart as the patient is really unable to give any sort of history. PAST MEDICAL HISTORY: Cirrhosis, varices. PAST SURGICAL HISTORY: EGD. SOCIAL HISTORY: History of the alcohol use. FAMILY HISTORY: There is no renal disease in the family. ALLERGIES: PENICILLIN. MEDICATIONS: All noted. REVIEW OF SYSTEMS: He is really unable to give any review of systems. PHYSICAL EXAMINATION: VITAL SIGNS: Blood pressure is 108/61, pulse 80s. He is afebrile. GENERAL: He is a chronically ill, older than appearing male, lying in bed in the medical floor. HEENT: Head is atraumatic. Pupils are equal, round, and reactive to light. Oropharynx is without exudate. Nares clear. NECK: There is no JVP. There is no thyromegaly. No masses. CARDIOVASCULAR: Regular. There is no S3 or S4 gallop. LUNGS: Coarse with equal thoracic movement. ABDOMEN: Soft. He does have ascites. EXTREMITIES: Reveal no clubbing, no cyanosis. NEUROLOGIC: He responds to deep stimuli. He is on Precedex. SKIN: Reveals no rash, no nodules. BACK: There is no CVA tenderness. There are no back deformities. LABORATORY DATA: Sodium 137, potassium 4.2, BUN 19, creatinine is 1.3. Hemoglobin 7.2, hematocrit 23, white blood cell count is 3000, platelet count is 76. Urinalysis is noted. CT scan reveals the ascites. Chest x-ray is noted. IMPRESSION: * Acute renal failure. * Hepatic encephalopathy. * Pancytopenia. * Hypotension. * History of the alcohol use. PLAN: The patient with significant renal dysfunction most likely related to prerenal ischemia from his cirrhosis. We will send off urine for electrolytes. The patient with relative hypotension and will be started on low-dose midodrine 5 mg p.o. t.i.d. and we will continue to monitor the patient's chemistries closely. The patient remains on lactulose for the encephalopathy. All labs can be repeated in the morning. I did discuss the case in detail with the patient's family. The patient does have significant anemia. We will check iron levels in the a.m. TID: [id number] RECEIPT: [id number] Electronically Signed by: ELMER ROSALES MD11/19/24 0955 Electronically Co-Signed by: CONSULTATION REPORT Name: KATHIE OSPINA Acct: [id number] MR: [id number] : 1965 Admit Date: 11/17/24 DANILO THORNE [address] [address] [facility] CONSULTATION NOTE Date Patient Seen: Nov 17, 2024 Time of Visit: 19:24 Supervising Physician: Dr Jose David Woody Reason for Consultation: ICU commodity management specialist Physician: Hospitalist Outpatient Specialists: [ ] Inpatient Consults: [ ] PROBLEM LIST: Acute hypoxic respiratory failure, POA Acute hepatic encephalopathy, initial ammonia level of 124, POA Acute decompensated liver cirrhosis, POA Lactic acidosis, POA Chronic alcoholism, POA Hepatorenal syndrome, POA Acute kidney injury, POA Hyponatremia, POA Chronic normocytic anemia, POA PLAN: Continue ICU care VS per unit protocol Continue cardiac monitoring Keep head of bed above 30 Monitor for bleeding Aspiration precautions Safety precautions Avoid narcotics and benzodiazepines Continue IV fluids Continue lactulose Follow up culture results Facilitate ordered labs and imaging CBC, CMP, magnesium level daily HPI: 59-year-old with past medical history of chronic alcoholism, liver cirrhosis who presented to ED with complaint of alteration in mental status and found to have acute hepatic encephalopathy, hepatorenal syndrome, acute hypoxic respiratory failure, and acute kidney injury. Per report patient's noticed that today patient was confused and having increased combativeness. When he presented to ER patient was very combative and agitated requiring dose of benzodiazepines. Initial CT of the head done in ED showed no acute intracranial abnormality, his initial CBC showed WBC count [place] 4100, hemoglobin 7.[place] [address], his BMP showed sodium of 134, potassium 4.1 chloride of 100, BUN of 22, creatinine 1.5, lactic acid of 3.6 (now down to 0.9) blood glucose of 160, and ammonia of 124. ICU was consulted for further evaluation and management. At present patient is currently hemodynamically stable, encephalopathic, unable to complete ROS due to alteration in mental status. Family is okay with chest compression but not with intubation. All information were obtained from prior medical record, and ER staff report. PAST MEDICAL HX: see above PAST SURGICAL HX: See HPI SOCIAL HISTORY: See HPI Coded Allergies: Penicillins (Unverified Allergy, Unknown, 11/17/24) Sulfa (Sulfonamide Antibiotics) (Unverified Allergy, Unknown, 11/17/24) REVIEW OF SYSTEMS: Unable to complete ROS due to alteration in mental status PHYSICAL EXAM: GENERAL: encephalopathic HEENT: EOMI, Sclera non icteric, moist mucosa NECK: Supple, no JVD, trachea midline LUNGS: Clear breath sounds bilaterally. No wheezes HEART: Sinus tach on them on monitor Normal S1 and S2, without murmurs ABD: Abdomen soft, nontender. Bowel sounds present EXT: No clubbing cyanosis or edema NEURO: Encephalopathic Vital Signs (last 8hr) Date Time Temp Pulse Resp B/P (MAP) Pulse Ox O2 Delivery O2 Flow Rate FiO2 11/17/24 18:29 99.3 101 20 117/81 99 Room Air* 0 11/17/24 17:47 115 11/17/24 17:30 102 25 118/69 97 Room Air* 0 11/17/24 16:30 103 21 125/60 97 Room Air* 0 11/17/24 15:30 120 22 104/60 97 Room Air* 0 11/17/24 14:21 99.3 117 20 116/55 97 Room Air* 0 21 11/17/24 13:30 98.1 95 16 136/62 97 Room Air LABS: Hematology Labs: Test 11/17/24 18:33 11/17/24 14:21 Range/Units Hemoglobin 7.3 L 14.0-18.0 g/dL Hematocrit 23.9 L 42-54 % White Blood Count 4.1 L 4.8-10.8 K/uL Red Blood Count 2.80 L 4.50-6.20 MIL/uL Mean Corpuscular Volume 88.2 79-99 fL Mean Corpuscular Hemoglobin 27.5 27.0-33.0 pg Mean Corpuscular Hemoglobin Concent 31.2 L 32.0-36.0 g/dL Red Cell Distribution Width 16.4 H 11.0-15.5 % Platelet Count 90 L 130-400 K/uL Mean Platelet Volume 10.2 7.5-10.5 fL Immature Granulocyte % (Auto) 0.5 0-1 % Neutrophils (%) (Auto) 59.4 40.0-77.0 % Lymphocytes (%) (Auto) 16.4 L 21.0-51.0 % Monocytes (%) (Auto) 17.9 H 3.0-13.0 % Eosinophils (%) (Auto) 5.3 0.0-8.0 % Basophils (%) (Auto) 0.5 0.0-5.0 % Neutrophils # (Auto) 2.5 1.8-7.7 K/uL Lymphocytes # (Auto) 0.7 L 1.0-4.8 K/uL Monocytes # (Auto) 0.7 0.1-1.0 K/uL Eosinophils # (Auto) 0.22 0.00-0.70 K/uL Basophils # (Auto) 0.02 0.00-0.20 K/uL Absolute Immature Granulocyte (auto 0.02 0-1 K/uL Nucleated Red Blood Cells 0.0 0.0-0.19 % White Cell Morphology Comment See comments Erythrocyte Sedimentation Rate 7 0-20 MM/HR Chemistry Labs: Test 11/17/24 18:33 11/17/24 14:21 Range/Units Lactic Acid Level 0.9 0.8-2.5 mmol/L Sodium Level 134 L 136-145 mmol/L Potassium Level 4.1 3.5-5.1 mmol/L Chloride Level 100 L 101-111 mmol/L Carbon Dioxide Level 23 21-32 mmol/L Blood Urea Nitrogen 22 H 7-18 mg/dL Creatinine 1.5 H 0.5-1.3 mg/dL Glomerular Filtration Rate Calc 53 >90 mL/min Random Glucose 160 H 70-105 mg/dL Hemoglobin A1c 4.2 4.0-6.0 % Estimated Average Glucose (eAG) 74 70-126 mg/dL Total Calcium 9.2 8.5-10.1 mg/dL Total Bilirubin 1.0 0.2-1.0 mg/dL Direct Bilirubin 0.4 H 0.0-0.3 mg/dL Aspartate Amino Transf (AST/SGOT) 26 10-37 U/L Alanine Aminotransferase (ALT/SGPT) 21 12-78 U/L Alkaline Phosphatase 122 50-136 U/L Ammonia 124 *H 11-32 umol/L Total Creatine Kinase 73 21-232 U/L Troponin I High Sensitivity 5 4-75 ng/L C-Reactive Protein, Quantitative 2.70 0.5-3.0 mg/L Total Protein 6.1 6.0-8.3 g/dL Albumin 3.0 L 3.5-5.0 g/dL Procalcitonin < 0.05 L 0.05-0.5 ng/mL Coagulation Labs: Test 11/17/24 14:21 Range/Units Prothrombin Time 12.2 H 9.6-11.6 SEC Prothromb Time International Ratio 1.17 H 0.85-1.15 Activated Partial Thromboplast Time 24.7 L 26.3-35.5 SEC DIAGNOSTICS / RADIOLOGY RESULTS: EXAM: CT Head Without IV contrast. CLINICAL HISTORY: AMS TECHNIQUE: Axial computed tomography images of the head/brain without intravenous contrast. COMPARISON: None provided. FINDINGS: BRAIN: No evidence of acute hemorrhage. No mass lesion. No CT evidence for acute territorial infarct. No midline shift or extra-axial collections. VENTRICLES: No hydrocephalus. ORBITS: The orbits are unremarkable. SINUSES AND MASTOIDS: The paranasal sinuses and mastoid air cells are clear. BONES: No fracture. SOFT TISSUES: Unremarkable. IMPRESSION: No acute intracranial abnormality. If clinical concern persist recommend MRI for further evaluation. PLAN NEURO: Minimize central acting medications as possible. Fall Precautions. Well lighted room through the day and minimize interruptions through the night to prevent acute delirium. PULMONARY: Supplemental 02 as needed Titrate Fio2 to keep Spo2 > or = 90% DuoNebs and CPT as needed IS hourly while awake for pulmonary hygiene CARDIOVASCULAR: Follow hemodynamics. Titrate vasopressor to keep MAP >65 or systolic blood pressure >95mmHg DIPS: None LINES: PIV GI & NUTRITION: Continue nutritional support Aspirations precautions Prokinetic agents and laxatives as needed KIDNEYS & ELECTROLYTES: Strict monitoring of intake and output Daily weights Avoid nephrotoxic agents Monitor electrolytes and replace as needed Goal urine output of 30mL/hr or 0.5mL/kg/hr Urine output: [ ] Fluid Balance: [ ] ENDOCRINE: Maintain blood glucose between 100-180 at all times. Insulin sliding scale for blood glucose management INFECTIOUS DISEASE: Trend temperature. Felix-culture if febrile. Micro: [ ] Antibiotics: [ ] HEMATOLOGY & COAGULATION: Monitor H&H. Keep Hgb > 7 Transfuse 1 unit of PRBC for Hgb < 7 Transfuse 1 pack of platelets of platelets < 20, 000 Watch for any signs and symptoms of bleeding SKIN: Pressure ulcer prevention per facility protocol Rehab: PT/OT Prophylaxis: GI: PPI DVT: SCDs Code Status: Full Resuscitation Disposition: ICU Other: Total patient care time exceeds 35 minutes excluding all procedures. Supervising physician: Dr Jose David THORNE,DANILO Johnson JEEP DRIVER Nov 17, 2024 19:36 Electronically Signed by: DANILO THORNE APRPerlita11/17/241956 Electronically Co-Signed by: JOSE DAVID WOODY MD11/18/24 1210 Procedure(s): [address] [place] [address] IMAGING REPORT Signed PATIENT: KATHIE OSPINA MR#: [id number] : 1965 SEX: M AGE: 59 LOCATION: [facility] ORDER 37 STATUS: REG ER REPORT#: [id number] SERVICE 36 REASON: AMS ORDERING PHYSICIAN: MADI BOYD MD PROCEDURE: HEAD WO - CT HEAD/BRAIN W/O CONTRAST EXAM: CT Head Without IV contrast. CLINICAL HISTORY: AMS TECHNIQUE: Axial computed tomography images of the head/brain without intravenous contrast. COMPARISON: None provided. FINDINGS: BRAIN: No evidence of acute hemorrhage. No mass lesion. No CT evidence for acute territorial infarct. No midline shift or extra-axial collections. VENTRICLES: No hydrocephalus. ORBITS: The orbits are unremarkable. SINUSES AND MASTOIDS: The paranasal sinuses and mastoid air cells are clear. BONES: No fracture. SOFT TISSUES: Unremarkable. IMPRESSION: No acute intracranial abnormality. If clinical concern persist recommend MRI for further evaluation. /[place] DICTATED BY: YARELIS RUSSELL Jr., MD DATE: 11/17/241610 ELECTRONICALLY SIGNED BY: YARELIS RUSSELL Jr., MD DATE: 11/17/241610 [place] [address] [place] [id number] IMAGING REPORT Signed PATIENT: KATHIE OSPINA MR#: [id number] : 1965 SEX: M AGE: 59 LOCATION: [facility] ORDER 18 STATUS: ADM IN REPORT#: [id number] SERVICE 13 REASON: decompensated liver cirrhosis, lactic acdiosis, assess for sig ascites ORDERING PHYSICIAN: RODNEY HUBBARD MD PROCEDURE: ABD PEL WO - CT ABDOMEN/PELVIS W/O CONTRAST EXAM:CT Abdomen and Pelvis Without IV contrast CLINICAL HISTORY: Decompensated liver cirrhosis, lactic acidosis, assess for significant ascites TECHNIQUE: Axial computed tomography images of the abdomen and pelvis without intravenous contrast. CONTRAST: No IV contrast. COMPARISON: None provided. FINDINGS: LUNG BASES: Atelectasis in the lung bases. No pleural effusions are seen. LIVER: Mild surface nodularity and volume redistribution. Few small calcified granulomas are seen in both lobes of the liver. GALLBLADDER AND BILE DUCTS: The gallbladder appears within normal limits. No radiopaque gallstones are seen. No biliary ductal dilatation is evident. PANCREAS: Unremarkable. SPLEEN: Enlarged, measuring 20 cm. ADRENAL GLANDS: Unremarkable. KIDNEYS, URETERS, AND BLADDER: The kidneys appear within normal limits. There is no hydronephrosis or hydroureter. No urinary calculi are seen. Bladder is unremarkable. STOMACH AND BOWEL: Unremarkable appearance of the stomach and bowel. No evidence of bowel obstruction. No evidence suggesting enteritis or colitis. Diverticulosis. PERITONEUM: Mild to moderate ascites is seen. Diffuse fat stranding of the omentum and mesentery. No free air. LYMPH NODES: Multiple reactive retroperitoneal and mesenteric lymph nodes, the largest measuring 1.3 cm in the paraaortic region. REPRODUCTIVE: Unremarkable as visualized. VASCULATURE: No evidence of abdominal aortic aneurysm. Mild atherosclerotic calcification of the aorta. BONES: Old rib fractures. No acute osseous pathology evident. Degenerative changes are seen in the visualised spine. IMPRESSION: 1. Mild to moderate ascites with diffuse omental and mesenteric fat stranding. 2. Cirrhotic liver. Splenomegaly /[place] DICTATED BY: MARIJA SALEEM MD DATE: 11/17/242124 ELECTRONICALLY SIGNED BY: MARIJA SALEEM MD DATE: 11/17/242124 [place] [address] IMAGING REPORT Signed PATIENT: KATHIE OSPINA MR#: [id number] : 1965 SEX: M AGE: 59 LOCATION: [facility] ORDER 13 STATUS: ADM IN REPORT#: [id number] SERVICE 12 REASON: assess for any pneumonia ORDERING PHYSICIAN: RODNEY HUBBARD MD PROCEDURE: CXR1VW - CHEST 1VW EXAM: CR Chest, 1 View. CLINICAL HISTORY: assess for any pneumonia COMPARISON: None provided. FINDINGS: LUNGS: The lungs show no infiltrate or other acute finding.Mild bibasilar atelectasis. PLEURAL SPACES: No pleural effusion or pneumothorax. MEDIASTINUM: Cardiac size and mediastinal contours within normal limits. BONES: No aggressive appearing osseous lesion seen. Several old right rib fracture deformities noted. IMPRESSION: No acute cardiopulmonary pathology is evident. /[place] DICTATED BY: YARELIS RUSSELL Jr., MD DATE: 11/17/242137 ELECTRONICALLY SIGNED BY: YARELIS RUSSELL Jr., MD DATE: 11/17/242137 Assessment/Plan: Discharge Diagnosis: Decompensated alcoholic liver cirrhosis with severe hepatic encephalopathy (MELD Score 15), POA Lactic acidosis, POA MATTIE on CKD, POA Hyponatremia, POA Chronic anemia, POA History of esophageal varices requiring banding in 09/2024, POA History of portal hypertensive gastropathy, POA History of chronic thrombocytopenia from underlying portal hypertension, POA Recent history of hepatic encephalopathy requiring hospitalization in [facility], 10/2024, POA Long-term history of alcoholism, POA History of tobacco use, POA Debility, POA Discharge Instructions: CONDITION: Left against medical advice FOLLOW UP APPOINTMENTS: Follow up with your primary care doctor in 2 to 3 days . Multidisciplinary outpatient follow-up recommended with nephrology,and gastroenterology SPECIFIC INSTRUCTIONS: Continued home medications Drink plenty of fluids to maintain hydration. Immediately return to the nearest emergency department if he develops worsening confusion, agitation, drowsiness, vomiting blood, black stools, abdominal pain, fever, chest pain, shortness of breath, or decreased urine output. Strictly avoid alcohol in any form, as continued alcohol use will further worsen his liver disease, increase the risk of gastrointestinal bleeding, and accelerate progression to liver failure. Home Medications: Reported Medications Spironolactone (Spironolactone) 100 Mg Tablet, 100 MG PO DAILY, TAB 11/17/24 Pantoprazole Sodium (Pantoprazole Sodium) 20 Mg Tablet.dr, 1 TAB PO DAILY for 30 Days, #30 TAB 0 Refills 11/17/24 Gabapentin (Gabapentin) 400 Mg Capsule, 300 MG PO TID, CAP 11/17/24 Ferrous Sulfate (Ferrous Sulfate) 325 Mg (65 Mg Iron) Ectab, 325 MG PO DAILY, TAB.EC 11/17/24 Bumetanide (Bumetanide) 1 Mg Tablet, 1 TAB PO DAILY for 30 Days, #30 TAB 0 Refills 11/17/24 Lactulose (Lactulose) 10 Gram/15 Ml Solution, 30 GM PO TID for LIVER CIRRHOSIS, ML 11/17/24 Rifaximin (Xifaxan) 550 Mg Tablet, 550 MG PO DAILY, TAB 11/17/24 Time spent arranging discharge: 1-30 minutes ATTESTATION BY PHYSICIAN I have seen and examined the patient. I reviewed the documentation, medical decision making, and treatment plan as noted by the resident provider above. I agree with the findings and plan of care. Nigel Ramirez MD, LAKSHMI MD Nov 19, 2024 14:18
--- NOTE | 2024-11-19 14:25 | NUR ---
DISCHARGE AMA PATIENT VERY AGITATED AND HOSTILE AT THIS TIME. PATIENT STATED, "IF YOU DON'T GET ME UP TO PEE, I'M GOING TO PUT MY HANDS ON YOU". EXPLAINED TO PATIENT THAT AGGRESSION WAS NOT NECESSARY. ASSISTED PATIENT WITH SHOE STAMPER UP TO THE BATHROOM. PATIENT ABLE TO WALK WITH LIMITED ASSISTANCE. ONCE PATIENT FINISHED USING THE BATHROOM, PATIENT SAT IN THE CHAIR AND REFUSED TO GET BACK INTO THE BED. PATIENT INSULTED STAFF BY MAKING DEROGATORY REMARKS ABOUT WEIGHT STATING, "YOU WOULD NEED 5 PEOPLE YOUR "SIZE" TO GET ME BACK INTO BED". ATTEMPTED TO REASON WITH PATIENT BY STATING THAT WE SHOULD WORK A TEAM. PATIENT STATED, "WELL I DON'T WANT TO BE ON YOUR TEAM. I WANT TO GO HOME". PATIENT'S ASKED IF LEAVING AMA WAS POSSIBLE. PER , PATIENT IS CLOSE TO BASELINE MENTALLY. NOTIFIED PRIMARY DOCTOR REGARDING 'S QUESTION. PER PRIMARY, PATIENT IS OKAY TO DISCHARGE AMA. PATIENT SIGNED AMA FORM AND DEMANDED THAT PERIPHERAL IV'S BE REMOVED. PERIPHERAL IV'S WERE REMOVED, PATIENT STATED, "SO YOU WANT TO HURT ME MORE"? PATIENT TAKEN TO FRONT OF HOSPITAL VIA WHEELCHAIR. PATIENT DISCHARGED AMA.
--- NOTE | 2024-11-19 14:46 | NUR ---
ETOH ABUSE REFERRAL Pt left AMA prior to SW receiving referral. No follow up conducted
--- NOTE | 2024-11-20 00:18 | PN ---
FOLLOWUP PROGRESS NOTE SUBJECTIVE: 59-year-old male with a history of cirrhosis. He initially presented with hepatic encephalopathy. The patient was just recently discharged from outside hospital for very similar issues, the acute on chronic renal failure, in the hospital creatinine has been elevated. The patient also with hypotension, has been placed on midodrine and he is being seen as a followup visit for all of the above. REVIEW OF SYSTEMS: He is feeling somewhat improved. HEENT: No change in vision. No change in hearing. CARDIOVASCULAR: There is no current chest pain or palpitations. PULMONARY: Denies any shortness of breath. GASTROINTESTINAL: He has been started on a diet. MUSCULOSKELETAL: Complains of weakness. PHYSICAL EXAMINATION: VITAL SIGNS: Blood pressure is 88/48, pulse 70. He is afebrile. GENERAL: He is a chronically old male, much older than appearing. HEENT: Atraumatic. Pupils are equal, round, reactive to light. Oropharynx is without exudate. Nares are clear. NECK: There is no JVP. There is no thyromegaly. No masses. CARDIOVASCULAR: Regular. There is no S3 or S4 gallop. LUNGS: Coarse with equal thoracic movement. ABDOMEN: Abdomen is soft and nontender. EXTREMITIES: There is no clubbing, no cyanosis. NEUROLOGICAL: Neurologically, he is much more awake and alert today. LABORATORY DATA: Hemoglobin 7.7, hematocrit 25, white blood cell count is 2000. Iron levels are noted, sodium 137, potassium 4.6, BUN 21, creatinine 1.4. IMPRESSION: * Acute on chronic renal dysfunction. * Hepatic encephalopathy. * Cirrhosis. * Hypotension. * Electrolyte abnormalities. PLAN: The patient with underlying renal dysfunction. The patient with persistent hypotension. The patient's midodrine will be increase to 10 mg p.o. t.i.d. GI workup is ongoing. The patient can safely be transferred out to the Medical Floor from a renal standpoint. We will continue to follow closely. I did discuss with the patient's family. TID: [id number] RECEIPT: [id number]
[2024-11-20] MEDS ORDERED: THIAMINE HCL 100 MG/ML 2ML VIAL IVP SCH (09:00)
== END 2024-11-19 14:05 | disposition left against medical advice (07) | DRG 441 ==
LOC: EDH 13:27 → EDHIP 17:14 → 2CH 19:04 → 3CH 11-19 12:45
PROVIDERS: ADMIT Internal Medicine; ATTEND Internal Medicine
PROC: 30233N1 Transfusion of Nonautologous Red Blood Cells into Peripheral Vein, Percutaneous Approach (ICD-10-PCS; principal; 2024-11-18)
DX: K76.82 Hepatic encephalopathy (principal); J96.01 Acute respiratory failure with hypoxia; K76.7 Hepatorenal syndrome; D61.818 Other pancytopenia; E87.1 Hypo-osmolality and hyponatremia; E87.20 Acidosis, unspecified; K76.6 Portal hypertension; N17.9 Acute kidney failure, unspecified; F10.239 Alcohol dependence with withdrawal, unspecified; D63.8 Anemia in other chronic diseases classified elsewhere; K31.89 Other diseases of stomach and duodenum; K70.31 Alcoholic cirrhosis of liver with ascites; I95.9 Hypotension, unspecified; Z53.29 Procedure and treatment not carried out because of patient's decision for other reasons; D69.59 Other secondary thrombocytopenia; F10.20 Alcohol dependence, uncomplicated; N18.9 Chronic kidney disease, unspecified; Z86.74 Personal history of sudden cardiac arrest; Z87.891 Personal history of nicotine dependence; Z88.0 Allergy status to penicillin; Z79.899 Other long term (current) drug therapy
CPT/HCPCS: 36415; 36430; 36600; 70450; 71045; 74176; 80048; 80053; 80076; 80305; 81003; 82140; 82435; 82550; 82803; 82947; 83036; 83540; 83550; 83605; 84132; 84145; 84295; 84484; 85014; 85018; 85025; 85610; 85651; 85730; 86140; 86850; 86900; 86901; 86923; 87040; 93005; 94640; 94664; 96374; 99291; G0378; J0696; J2354; J2470; J3360; J3411; J3490; J7030; J7050; P9016